=== PATIENT | female | born 1950 | race Caucasian/White ===

== ENCOUNTER 2016-10-18 11:20 | Observation (INO) | payer MEDICARE ==
[2016-10-18 12:01] LABS: Mean Cell Volume 84.5 fl (78-100); Mean Corpuscular Hemoglobin 28.3 pg (26-32); Mean Platelet Volume 9.3 fl (6-9.5); Platelet Count 492 K/mm3 (150-450); Red Blood Count 4.53 M/mm3 (4.1-5.4); White Blood Count 11.2 K/mm3 (4.0-10.5)
[2016-10-18 12:38] LABS: ALBUMIN 3.5 g/dL (3.4-5.0); ANION GAP 17.6 MEQ/L (5-15); BILIRUBIN,TOTAL 0.4 mg/dL (0.2-1.0); Carbon Dioxide 21.7 mEq/L (21-32); Total Protein 7.6 gm/dL (6.4-8.2)
[2016-10-18] MEDS ORDERED: Lasix 40 MG/4 ML IV ONE (13:16)
--- NOTE | 2016-10-18 14:03 | XRAY ---
Exam: Two-view chest from 10/18/2016. Comparison: Two-view chest from 02/09/2016. Indication: Dyspnea. Findings: Upright PA and lateral chest films were obtained. The heart size is normal. The minimal epicardial fat pad is seen at the left cardiophrenic angle. Mild tortuosity of the descending thoracic aorta is seen. The remainder of the zen and mediastinal structures appears unremarkable. There is a thin transverse linear strand of plate atelectasis or linear scarring at the lateral right lung base. No air space infiltrates, vascular congestion, pneumothorax, or pleural fluid is seen. The bones are demineralized. Mild lower mid dorsal kyphosis and diffuse thoracic spondylosis are seen. I again see evidence of prior left shoulder surgery. Impression: 1. No infiltrates to suggest focal pneumonia or other acute cardiopulmonary disease is seen. 2. Thin small transverse strand of scarring or subsegmental plate atelectasis at lateral right lung base.
[2016-10-18] MEDS: Zestril 5 MG PO SCH (15:12)
[2016-10-19 00:51] LABS: Collection Type CLEAN CATCH
[2016-10-19 00:52] LABS: ADD URINE CULTURE? NO (NO); COMPLETE URINE MICROSCOPIC? NO
[2016-10-19 01:06] VITALS: O2SAT 93
[2016-10-19 06:09] LABS: Mean Cell Volume 85.5 fl (78-100); Platelet Count 445 K/mm3 (150-450); Red Blood Count 4.27 M/mm3 (4.1-5.4); Red Cell Distribution Width 13.9 % (11.5-14.0); White Blood Count 9.3 K/mm3 (4.0-10.5)
[2016-10-19 06:23] LABS: Mean Corpuscular Hemoglobin 27.1 pg (26-32)
[2016-10-19 06:37] LABS: ANION GAP 14.5 MEQ/L (5-15); Carbon Dioxide 27.3 mEq/L (21-32)
[2016-10-19 07:48] VITALS: BP 121/57; PULSE 88
--- NOTE | 2016-10-19 09:28 | PCM.DCORD ---
- Discharge Discharge Date: 10/19/16 Disposition: Home, Self-Care Condition: Stable Prescriptions: Continue Lisinopril 5 mg [Zestril 5 MG] 5 mg PO DAILY Discontinued Baicalin/Catechin/Citrated Znc [[id number] Capsule] 1,000 mg PO BID Instructions: Dyspepsia Follow up with: ARMANI ALVAREZ [Primary Care Provider] - 1 Week
[2016-10-19] MEDS: Zestril 5 MG PO SCH (09:40)
[2016-10-19] MEDS ORDERED: Lasix 40 MG/4 ML IV SCH (10:00)
[2016-10-19] MEDS ORDERED: FLUZONE HIGH-DOSE 2016-17 SYR IM ONE (10:00)
--- NOTE | 2016-10-21 11:41 | SSS ---
DISCHARGE DIAGNOSES: 1) WEAKNESS. 2) ELEVATED PRO-BNP (PRO B-TYPE NATRIURETIC PEPTIDE) LEVEL. 3) HISTORY OF ARTHRITIS. HISTORY OF PRESENT ILLNESS: The patient is a 66 year-old white female who was seen in the office by Dr. Hightower. She complained of some generalized weakness. She went to the bathroom and came back to the room. Afterwards Dr. Hightower noted her to be significantly short of breath. She was therefore directly admitted to hospital for evaluation and management. The patient reports no recent infections other than she did have a diarrheal episode approximately a week ago. She reports she has been having occipital area headache. She does have some new medication which she was given from Dr. Ferguson, a local recording studio setup worker, Limbrel at 1,000 mg b.i.d. which the patient reports is new for her. She are unsure perhaps that is the cause of some of her problems. The patient did receive a dose of Lasix what was found to be elevated pro-BNP level after which the patient did diurese nicely afterwards but the patient reports that she did not really feel much better afterwards. PAST MEDICAL/SURGICAL HISTORY: HOME MEDICATIONS: The patient's other medications at home are lisinopril 5 mg a day. ALLERGIES: SULFA. PHYSICAL EXAMINATION: The patient is an obese white female in no obvious distress. VITAL SIGNS: Showed temperature 97.9F, pulse 87, respiratory rate 15, blood pressure 118/70. O2 saturation 93% on room air. HEENT: Normocephalic, atraumatic. Pupils equal round reactive to light. Extraocular movements intact. Oropharynx is pink and moist. NECK: Supple without lymphadenopathy, thyromegaly or JVD. CHEST: Clear to auscultation with good air movement bilaterally. HEART: Regular rate and rhythm without murmurs, rubs or gallops. ABDOMEN: Soft, nontender, nondistended without hepatosplenomegaly or masses. EXTREMITIES: Without clubbing, cyanosis or edema. NEUROLOGIC: The patient is alert and oriented x3. No focal deficits were noted. LAB DATA AND TESTS: Otherwise show hemoglobin 12.8, white blood cell count 11,200, PLT count 492,000. Her metabolic panel showed glucose nonfasting at 124, BUN 14, creatinine 1.09. Electrolytes were normal. Liver enzymes were normal. Pro-BNP level was indicated previously as 930. Influenza A, B and respiratory syncytial virus were negative. UA was normal. The patient did have an echocardiogram performed which results are currently pending. HOSPITAL COURSE: The patient after a stay overnight is comfortable on room air on no IV treatments nor any specific medications otherwise had been ordered. The patient was felt to be ready for discharge home at this time with instructions to follow with Dr. Hightower for follow up on her echocardiogram report. She was asked not to take her new rheumatologic medication as we are concerned that might have something to do with the way she has been feeling. She is to call us or return to the hospital if she has worsening in her condition in the interim.
--- NOTE | 2016-10-22 13:54 | ECHO ---
DATE OF PROCEDURE: 10/18/2016 CLINICAL INFORMATION: Dyspnea. The M-mode 2D, and Doppler echocardiogram including color flow Doppler shows normal contractility of the left ventricle. The ejection fraction is between 55 and 60%. The left ventricle is normal in size with a dimension of 5.2 cm. The septum is at the upper limits of normal with thickness of 1.1 cm. The left ventricular posterior wall is mildly hypertrophied with a thickness of 1.3 cm. The right ventricle is normal in size and function. The left atrium is normal in size with a dimension of 3.5 cm. The intra-atrial septum is intact. The right atrium is normal in size. The aortic valve opens well. It is not well visualized. There is mild mitral regurgitation present. There is mild tricuspid regurgitation. The right ventricular systolic pressure is normal at 25 mm of [place]. The pulmonic valve is not well visualized. The aortic root is normal with a dimension of 2.8 cm. There is no pericardial effusion present. The mitral valve E to A inflow velocity ratio is decreased at 0.6 consistent with impaired left ventricular relaxation. IMPRESSION: 1) NORMAL CONTRACTILITY OF THE LEFT VENTRICLE. 2) EVIDENCE OF IMPAIRED LEFT VENTRICULAR RELAXATION. 3) MILD ASYMMETRIC LEFT VENTRICULAR HYPERTROPHY. 4) MILD MITRAL REGURGITATION. 5) MILD TRICUSPID REGURGITATION. 6) NORMAL RIGHT VENTRICULAR SYSTOLIC PRESSURE.
== END 2016-10-19 11:20 | disposition home or self-care (01) ==
LOC: MED SURG 11:20
PROVIDERS: ADMIT Family Medicine; ATTEND Family Medicine
DX: R53.1 Weakness (principal); R79.89 Other specified abnormal findings of blood chemistry; M19.90 Unspecified osteoarthritis, unspecified site; Z23 Encounter for immunization; E78.5 Hyperlipidemia, unspecified
CPT/HCPCS: 36415; 71020; 80048; 80053; 81000; 83880; 85027; 87631; 90662; 93306; G0008; G0378; J1940

== ENCOUNTER 2016-11-06 23:03 | Inpatient (IN) | payer MEDICARE ==
[2016-11-06] MEDS ORDERED: BABY ASPIRIN 81 MG CHEW PO ONE (23:24)
[2016-11-06] MEDS ORDERED: VALIUM 10 MG/2 ML SYRINGE IV ONE (23:25)
--- NOTE | 2016-11-06 23:29 | ERPHSYRPT ---
- History of Present Illness Time Seen by Provider: 11/06/16 23:18 Source: patient, family (DAUGHTER) Exam Limitations: no limitations Patient Subjective Stated Complaint: pt states she has been getting increasingly short of breath tonight and arms are going numb Triage Nursing Assessment: pt alert and oriented, asnwers questions approp. short of breath while talking. skin warm and dry, respirations labored with lungs cta. pt denies chest pain. Physician History: FOR THE PAST 3 WEEKS PT HAS HAD INTERMITTENT SHORTNESS OF AIR AND NUMBNESS IN BOTH ARMS; DENIES CHEST PAIN, VOMITING, FEVER. PT STATES SHE HAD A V/Q SCAN YESTERDAY WITH A RESULT OF NO PE. Allergies/Adverse Reactions: Sulfa (Sulfonamide Antibiotics) Allergy (Verified 11/06/16 23:19) Home Medications: Lisinopril 5 mg [Zestril 5 MG] 5 mg PO DAILY 02/09/16 [History] Aspirin [Aspirin EC] 81 mg PO DAILY 11/06/16 [History] Hx Tetanus, Diphtheria Vaccination/Date Given: Yes Hx Influenza Vaccination/Date Given: Yes Hx Pneumococcal Vaccination/Date Given: Yes (Prevnar 13) Immunizations Up to Date: Yes - Review of Systems Constitutional: No Fever Respiratory: Dyspnea Cardiac: No Chest Pain Abdominal/Gastrointestinal: No Vomiting Neurological: Sensory Changes (NUMBNESS IN BOTH ARMS) All Other Systems: Reviewed and Negative - Past Medical History Pertinent Past Medical History: Yes Neurological History: Seizures, Stroke ENT History: No Pertinent History Cardiac History: Hypertension Respiratory History: No Pertinent History Endocrine Medical History: No Pertinent History Musculoskeletal History: Osteoarthritis GI Medical History: No Pertinent History History: No Pertinent History Psycho-Social History: No Pertinent History Female Reproductive Disorders: No Pertinent History Other Medical History: admitted recently with shortness of breath - Past Surgical History Past Surgical History: Yes Neuro Surgical History: No Pertinent History Cardiac: No Pertinent History Respiratory: No Pertinent History Gastrointestinal: No Pertinent History Genitourinary: No Pertinent History Musculoskeletal: Other Female Surgical History: Tubal Ligation Other Surgical History: left rotator cuff surgery, cyst r arm removed - Social History Smoking Status: Never smoker Exposure to second hand smoke: Yes Drug Use: none Patient Lives Alone: No - Female History Hx Last Menstrual Period: post - Nursing Vital Signs Nursing Vital Signs: Initial Vital Signs Temperature Source Oral Pulse Rate 112 Respiratory Rate 28 Blood Pressure [] 131/77 Pain Intensity 0 - Physical Exam General Appearance: alert, anxiety Eye Exam: PERRL/EOMI Ears, Nose, Throat Exam: hearing grossly normal, No pharyngeal erythema (DRY m.m.) Neck Exam: normal inspection Respiratory Exam: lungs clear Cardiovascular/Chest Exam: normal heart sounds, normal peripheral pulses Abdominal/Gastrointestinal Exam: soft, normal bowel sounds Extremity Exam: normal inspection, No pedal edema Peripheral Pulses Exam: dorsalis-pedis (R): 2+, dorsalis-pedis (L): 2+ Neurologic Exam: alert, cooperative, No normal mood/affect (VERY ANXIOUS) Skin Exam: warm, dry SpO2 Interpretation: normal SpO2: 96 Oxygen Delivery: Room Air - Course Nursing assessment & vital signs reviewed: Yes EKG Interpreted by Me: RATE (120), Sinus Tach, NORMAL AXIS, NORMAL INTERVALS - Radiology Exams Chest X-ray Interpretation: Interpreted by me, No Pneumonia Ordered Tests: Active Orders 24 hr Category Date Time Status Sheet Metal Worker Supervisor STAT Care 11/06/16 23:24 Active EKG-ER Only STAT Care 11/06/16 23:24 Active IV Insertion STAT Care 11/06/16 23:24 Active Oxygen-ED Only NASAL CANNULA 2 lpm Care 11/06/16 23:24 Active Pulse Oximetry (ED) STAT Care 11/06/16 23:24 Active CHEST 1 VIEW (PORTABLE) Stat Exams 11/06/16 23:24 Taken ABG [ARTERIAL BLOOD GASES] Stat Lab 11/06/16 23:39 Completed ABG [ARTERIAL BLOOD GASES] Stat Lab 11/07/16 04:00 Completed AMYLASE Stat Lab 11/06/16 23:28 Completed BLOOD CULTURE Stat Lab 11/07/16 00:00 Received BMP Stat Lab 11/07/16 01:53 Completed CBC W DIFF Stat Lab 11/06/16 23:28 Completed CMP Stat Lab 11/06/16 23:28 Completed CULTURE,URINE Stat Lab 11/07/16 01:40 Received LIPASE Stat Lab 11/06/16 23:28 Completed Lactic Acid Stat Lab 11/07/16 04:00 Completed Lactic Acid Urgent Lab 11/06/16 23:39 Completed Lactic Acid Urgent Lab 11/07/16 01:50 Completed MAGNESIUM Stat Lab 11/06/16 23:28 Completed MAGNESIUM Stat Lab 11/07/16 01:53 Completed TROPONIN Stat Lab 11/06/16 23:28 Completed TROPONIN Stat Lab 11/07/16 01:53 Completed UA W/ MICROSCOPIC Stat Lab 11/07/16 01:37 Completed Medication Summary Generic Name Dose Route Start Last Admin Trade Name Darleen PRN Reason Stop Dose Admin Sodium Chloride 1,000 mls @ 100 mls/hr 11/06/16 23:30 11/06/16 23:35 Sodium Chloride 0.9% 1000 Ml IV 12/06/16 23:29 100 mls/hr .Q10H GRETCHEN Administration Discontinued Medications Generic Name Dose Route Start Last Admin Trade Name Darleen PRN Reason Stop Dose Admin Aspirin 324 mg 11/06/16 23:24 11/06/16 23:35 Baby Aspirin 81 Mg Chew PO 11/06/16 23:25 324 mg STAT ONE Administration Aspirin Confirm 11/06/16 23:32 Baby Aspirin 81 Mg Chew Administered 11/06/16 23:33 Dose 324 mg .ROUTE .STK-MED ONE Diazepam 5 mg 11/06/16 23:25 11/06/16 23:34 Valium 10 Mg/2 Ml Syringe IV 11/06/16 23:26 5 mg STAT ONE Administration Diazepam Confirm 11/06/16 23:32 Valium 10 Mg/2 Ml Syringe Administered 11/06/16 23:33 Dose 10 mg .ROUTE .STK-MED ONE Sodium Chloride Confirm 11/06/16 23:33 Sodium Chloride 0.9% 1000 Ml Administered 11/06/16 23:34 Dose 1,000 mls @ ud .ROUTE .STK-MED ONE Magnesium Sulfate/Dextrose 100 mls @ 200 mls/hr 11/07/16 00:15 11/07/16 00:21 Magnesium 1 Gm / 100 Ml D5w IV 11/07/16 00:44 200 mls/hr STAT ONE Administration Magnesium Sulfate/Dextrose Confirm 11/07/16 00:19 Magnesium 1 Gm / 100 Ml D5w Administered 11/07/16 00:20 Dose 100 mls @ ud IV .STK-MED ONE Ceftriaxone Sodium/Dextrose 50 mls @ 100 mls/hr 11/07/16 02:20 11/07/16 02:39 Rocephin 1 Gm-D5w 50 Ml Bag IV 11/07/16 02:49 100 mls/hr STAT ONE Administration Sodium Chloride 1,000 mls @ 999 mls/hr 11/07/16 02:20 11/07/16 03:17 Sodium Chloride 0.9% 1000 Ml IV 11/07/16 03:20 999 mls/hr .Q1H1M STA Administration Sodium Chloride 1,000 mls @ 999 mls/hr 11/07/16 02:28 11/07/16 04:30 Sodium Chloride 0.9% 1000 Ml IV 11/07/16 03:28 999 mls/hr .Q1H1M STA Administration Ceftriaxone Sodium/Dextrose Confirm 11/07/16 02:38 Rocephin 1 Gm-D5w 50 Ml Bag Administered 11/07/16 02:39 Dose 50 mls @ ud IV .STK-MED ONE Sodium Chloride Confirm 11/07/16 03:17 Sodium Chloride 0.9% 1000 Ml Administered 11/07/16 03:18 Dose 1,000 mls @ ud .ROUTE .STK-MED ONE Sodium Chloride Confirm 11/07/16 04:30 Sodium Chloride 0.9% 1000 Ml Administered 11/07/16 04:31 Dose 1,000 mls @ ud .ROUTE .STK-MED ONE Lab/Rad Data: Laboratory Result Diagrams 11/06/16 23:28 11/07/16 01:53 Laboratory Results 11/07/16 11/07/16 11/07/16 Range/Units 04:00 01:53 01:50 WBC (4.0-10.5) K/mm3 RBC (4.1-5.4) M/mm3 Hgb (12.0-16.0) gm/dl Hct (35-47) % MCV (78-100) fl MCH (26-32) pg MCHC (32-36) g/dl RDW (11.5-14.0) % Plt Count (150-450) K/mm3 MPV (6-9.5) fl Gran % (36.0-66.0) % Lymphocytes % (24.0-44.0) % Monocytes % (0.0-12.0) % Eosinophils % (0.00-5.0) % Basophils % (0.0-0.4) % Basophils # (0-0.4) Puncture Site RIGHT BRACHIAL pCO2 32 L (35-45) mmHg pO2 66 L (75-100) mmHg Base Excess -3.0 L (-2.0-2.0) O2 Saturation 93.0 L (94-100) g/dF ABG pH 7.42 (7.35-7.45) ABG HCO3 20.8 L (22-28) ABG O2 Sat (Measured) 95.7 (95-100) % Jay Test NOT APPLICABLE A-a Gradient 44 a/A Ratio 0.60 Hemoglobin 11.0 Carboxyhemoglobin 1.8 (0.0-6.9) % THgb Methemoglobin 1.0 L (1.4-1.5) % Temperature 37.0 C POC O2 Flow Rate 21 % Sodium 141 (136-145) mEq/L Potassium 4.3 4.7 (3.5-5.1) mEq/L Chloride 106 (98-107) mEq/L Carbon Dioxide 24.8 (21-32) mEq/L Anion Gap 15.0 (5-15) MEQ/L BUN 16 (9-20) mg/dL Creatinine 1.19 (0.55-1.30) mg/dl Estimated GFR 48 ML/MIN Glucose 167 H (70-110) MG/DL Lactic Acid 2.1 H 2.7 H (0.4-2.0) Calcium 9.4 (8.5-10.1) mg/dL Magnesium 2.1 (1.8-2.4) mg/dL Total Bilirubin (0.2-1.0) mg/dL AST (15-37) U/L ALT (12-78) U/L Alkaline Phosphatase (46-116) U/L Troponin I < 0.017 (0.000-0.056) ng/ml Serum Total Protein (6.4-8.2) gm/dL Albumin (3.4-5.0) g/dL Amylase (25-115) U/L Lipase (73-393) U/L Ur Collection Type Urine Color (YELLOW) Urine Appearance (CLEAR) Urine pH (5-6) Ur Specific [place] (1.005-1.025) Urine Protein (Negative) Urine Glucose (UA) (NEGATIVE) mg/dL Urine Ketones (NEGATIVE) Urine Nitrite (NEGATIVE) Urine Bilirubin (NEGATIVE) Urine Urobilinogen (0-1) mg/dL Urine WBC (Auto) (NEGATIVE) Urine RBC (Auto) (0-5) Mariusz/ul Urine Microscopic RBC (0-2) /HPF Urine Microscopic WBC (0-5) /HPF Ur Epithelial Cells (FEW) /HPF Urine Bacteria (NEGATIVE) /HPF Hyaline Casts (0-2) /LPF Urine Mucus (NEGATIVE) /HPF Specimen Received 11/07/16 11/06/16 11/06/16 Range/Units 01:37 23:39 23:39 WBC (4.0-10.5) K/mm3 RBC (4.1-5.4) M/mm3 Hgb (12.0-16.0) gm/dl Hct (35-47) % MCV (78-100) fl MCH (26-32) pg MCHC (32-36) g/dl RDW (11.5-14.0) % Plt Count (150-450) K/mm3 MPV (6-9.5) fl Gran % (36.0-66.0) % Lymphocytes % (24.0-44.0) % Monocytes % (0.0-12.0) % Eosinophils % (0.00-5.0) % Basophils % (0.0-0.4) % Basophils # (0-0.4) Puncture Site RIGHT BRACHIAL pCO2 34 L (35-45) mmHg pO2 62 L (75-100) mmHg Base Excess -1.8 (-2.0-2.0) O2 Saturation 92.8 L (94-100) g/dF ABG pH 7.42 (7.35-7.45) ABG HCO3 22.1 (22-28) ABG O2 Sat (Measured) 94.9 L (95-100) % Jay Test NOT APPLICABLE A-a Gradient 45 a/A Ratio 0.58 Hemoglobin 12.0 Carboxyhemoglobin 1.7 (0.0-6.9) % THgb Methemoglobin 0.5 L (1.4-1.5) % Temperature 37.0 C POC O2 Flow Rate 21 % Sodium (136-145) mEq/L Potassium 4.0 (3.5-5.1) mEq/L Chloride (98-107) mEq/L Carbon Dioxide (21-32) mEq/L Anion Gap (5-15) MEQ/L BUN (9-20) mg/dL Creatinine (0.55-1.30) mg/dl Estimated GFR ML/MIN Glucose (70-110) MG/DL Lactic Acid 2.7 H (0.4-2.0) Calcium (8.5-10.1) mg/dL Magnesium (1.8-2.4) mg/dL Total Bilirubin (0.2-1.0) mg/dL AST (15-37) U/L ALT (12-78) U/L Alkaline Phosphatase (46-116) U/L Troponin I (0.000-0.056) ng/ml Serum Total Protein (6.4-8.2) gm/dL Albumin (3.4-5.0) g/dL Amylase (25-115) U/L Lipase (73-393) U/L Ur Collection Type CLEAN CATCH Urine Color YELLOW (YELLOW) Urine Appearance CLEAR (CLEAR) Urine pH 5.5 (5-6) Ur Specific [place] 1.025 (1.005-1.025) Urine Protein TRACE (Negative) Urine Glucose (UA) NEGATIVE (NEGATIVE) mg/dL Urine Ketones NEGATIVE (NEGATIVE) Urine Nitrite NEGATIVE (NEGATIVE) Urine Bilirubin NEGATIVE (NEGATIVE) Urine Urobilinogen 0.2 (0-1) mg/dL Urine WBC (Auto) TRACE (NEGATIVE) Urine RBC (Auto) NEGATIVE (0-5) Mariusz/ul Urine Microscopic RBC 2-5 (0-2) /HPF Urine Microscopic WBC 5-10 (0-5) /HPF Ur Epithelial Cells MODERATE (FEW) /HPF Urine Bacteria MODERATE (NEGATIVE) /HPF Hyaline Casts 0-2 (0-2) /LPF Urine Mucus MODERATE (NEGATIVE) /HPF Specimen Received 11/07/16 0140 11/06/16 11/06/16 11/06/16 Range/Units 23:28 23:28 23:28 WBC 12.9 H (4.0-10.5) K/mm3 RBC 4.54 (4.1-5.4) M/mm3 Hgb 12.6 (12.0-16.0) gm/dl Hct 39.0 (35-47) % MCV 85.9 (78-100) fl MCH 27.8 (26-32) pg MCHC 32.3 (32-36) g/dl RDW 13.9 (11.5-14.0) % Plt Count 302 (150-450) K/mm3 MPV 8.9 (6-9.5) fl Gran % 87.8 H (36.0-66.0) % Lymphocytes % 5.8 L (24.0-44.0) % Monocytes % 4.2 (0.0-12.0) % Eosinophils % 2.1 (0.00-5.0) % Basophils % 0.1 (0.0-0.4) % Basophils # 0.01 (0-0.4) Puncture Site pCO2 (35-45) mmHg pO2 (75-100) mmHg Base Excess (-2.0-2.0) O2 Saturation (94-100) g/dF ABG pH (7.35-7.45) ABG HCO3 (22-28) ABG O2 Sat (Measured) (95-100) % Jay Test A-a Gradient a/A Ratio Hemoglobin Carboxyhemoglobin (0.0-6.9) % THgb Methemoglobin (1.4-1.5) % Temperature C POC O2 Flow Rate % Sodium 139 (136-145) mEq/L Potassium 3.9 (3.5-5.1) mEq/L Chloride 105 (98-107) mEq/L Carbon Dioxide 19.6 L (21-32) mEq/L Anion Gap 18.7 H (5-15) MEQ/L BUN 18 (9-20) mg/dL Creatinine 1.25 (0.55-1.30) mg/dl Estimated GFR 45 ML/MIN Glucose 175 H (70-110) MG/DL Lactic Acid (0.4-2.0) Calcium 9.6 (8.5-10.1) mg/dL Magnesium 1.6 L (1.8-2.4) mg/dL Total Bilirubin 0.4 (0.2-1.0) mg/dL AST 43 H (15-37) U/L ALT 35 (12-78) U/L Alkaline Phosphatase 69 (46-116) U/L Troponin I < 0.017 (0.000-0.056) ng/ml Serum Total Protein 7.5 (6.4-8.2) gm/dL Albumin 3.7 (3.4-5.0) g/dL Amylase 45 (25-115) U/L Lipase 104 (73-393) U/L Ur Collection Type Urine Color (YELLOW) Urine Appearance (CLEAR) Urine pH (5-6) Ur Specific [place] (1.005-1.025) Urine Protein (Negative) Urine Glucose (UA) (NEGATIVE) mg/dL Urine Ketones (NEGATIVE) Urine Nitrite (NEGATIVE) Urine Bilirubin (NEGATIVE) Urine Urobilinogen (0-1) mg/dL Urine WBC (Auto) (NEGATIVE) Urine RBC (Auto) (0-5) Mariusz/ul Urine Microscopic RBC (0-2) /HPF Urine Microscopic WBC (0-5) /HPF Ur Epithelial Cells (FEW) /HPF Urine Bacteria (NEGATIVE) /HPF Hyaline Casts (0-2) /LPF Urine Mucus (NEGATIVE) /HPF Specimen Received - Progress Discussed with Dr.: Laguna (OBS ~ [id number]) - Departure Time of Disposition: 04:40 Departure Disposition: Observation Clinical Impression: UTI, MILD DEHYDRATION, HYPOMAGNESEMIA, DYSPNEA, DYSESTHESIA OF ARMS, HTN, ARTHRITIS, ANXIETY Condition: Stable Critical Care Time: No Referrals: ARMANI ALVAREZ [Primary Care Provider] -
[2016-11-06] MEDS ORDERED: Sodium Chloride 0.9% 1000 ML 1,000 ML IV SCH (23:30)
[2016-11-06] MEDS ORDERED: VALIUM 10 MG/2 ML SYRINGE ONE (23:32)
[2016-11-06] MEDS ORDERED: BABY ASPIRIN 81 MG CHEW ONE (23:32)
[2016-11-06] MEDS ORDERED: Sodium Chloride 0.9% 1000 ML 1,000 ML ONE (23:33)
[2016-11-06 23:34] LABS: BASOPHIL % 0.1 % (0.0-0.4); Eosinophil % 2.1 % (0.00-5.0); Granulocytes % 87.8 % (36.0-66.0); Lymphocytes % 5.8 % (24.0-44.0); Mean Cell Volume 85.9 fl (78-100); Mean Corpuscular Hemoglobin 27.8 pg (26-32); Mean Platelet Volume 8.9 fl (6-9.5); Monocytes % 4.2 % (0.0-12.0); Platelet Count 302 K/mm3 (150-450); Red Blood Count 4.54 M/mm3 (4.1-5.4); Red Cell Distribution Width 13.9 % (11.5-14.0); White Blood Count 12.9 K/mm3 (4.0-10.5)
[2016-11-06 23:47] LABS: A-aADO2 45; ARTERIAL BLD GAS O2 SATURATION 94.9 % (95-100); ARTERIAL BLOOD GAS BASE EXCESS -1.8 (-2.0-2.0); ARTERIAL BLOOD GAS FIO2 21 %; ARTERIAL BLOOD GAS PO2 62 mmHg (75-100); ARTERIAL BLOOD GAS pH 7.42 (7.35-7.45)
[2016-11-06 23:54] LABS: ALBUMIN 3.7 g/dL (3.4-5.0); ANION GAP 18.7 MEQ/L (5-15); BILIRUBIN,TOTAL 0.4 mg/dL (0.2-1.0); Carbon Dioxide 19.6 mEq/L (21-32); MAGNESIUM 1.6 mg/dL (1.8-2.4); Potassium 3.9 mEq/L (3.5-5.1); Total Protein 7.5 gm/dL (6.4-8.2)
[2016-11-07] MEDS ORDERED: Magnesium 1 Gm / 100 Ml D5W*** 100 ML IV ONE ×2 (00:15→00:19)
[2016-11-07 01:59] LABS: Bacteria MODERATE /HPF (NEGATIVE); COMPLETE URINE MICROSCOPIC? YES; Collection Type CLEAN CATCH; Epithelial Cells MODERATE /HPF (FEW); Hyaline Casts 0-2 /LPF (0-2); Mucus MODERATE /HPF (NEGATIVE); Ph 5.5 (5-6)
[2016-11-07 02:18] LABS: BLOOD UREA NITROGEN 16 mg/dL (9-20); CHLORIDE 106 mEq/L (98-107); Carbon Dioxide 24.8 mEq/L (21-32); Glucose 167 MG/DL (70-110); MAGNESIUM 2.1 mg/dL (1.8-2.4); Potassium 4.7 mEq/L (3.5-5.1); SODIUM 141 mEq/L (136-145); TROPONIN < 0.017 ng/ml (0.000-0.056)
[2016-11-07] MEDS ORDERED: ROCEPHIN 1 Gm-D5w 50 ml Bag** 50 ML IV ONE ×2 (02:20→02:38)
[2016-11-07] MEDS ORDERED: Sodium Chloride 0.9% 1000 ML 1,000 ML IV STA ×2 (02:20→02:28)
[2016-11-07] MEDS ORDERED: Sodium Chloride 0.9% 1000 ML 1,000 ML ONE (03:17)
[2016-11-07 04:06] LABS: A-aADO2 44; ARTERIAL BLD GAS O2 SATURATION 95.7 % (95-100); ARTERIAL BLOOD GAS FIO2 21 %; ARTERIAL BLOOD GAS PO2 66 mmHg (75-100); ARTERIAL BLOOD GAS pH 7.42 (7.35-7.45); Lactic Acid 2.1 (0.4-2.0)
[2016-11-07] MEDS ORDERED: Sodium Chloride 0.9% 1000 ML 2,000 ML ONE (04:30)
[2016-11-07] MEDS ORDERED: Phenergan 25 MG INJ IV PRN (05:03)
[2016-11-07] MEDS: Sodium Chloride 0.9% 1000 ML 1,000 ML IV SCH ×2 (06:21→16:04)
[2016-11-07 07:36] LABS: Mean Cell Volume 86.3 fl (78-100); Mean Platelet Volume 8.7 fl (6-9.5); Platelet Count 295 K/mm3 (150-450); Red Cell Distribution Width 13.9 % (11.5-14.0); White Blood Count 11.8 K/mm3 (4.0-10.5)
[2016-11-07] MEDS: TYLENOL 325 MG PO PRN ×2 (08:08→16:04)
[2016-11-07 08:09] LABS: ALBUMIN 2.8 g/dL (3.4-5.0); ALKALINE PHOSPHATASE 57 U/L (46-116); ANION GAP 15.7 MEQ/L (5-15); BILIRUBIN,TOTAL 0.3 mg/dL (0.2-1.0); BLOOD UREA NITROGEN 13 mg/dL (9-20); Glucose 143 MG/DL (70-110); MAGNESIUM 1.8 mg/dL (1.8-2.4); Potassium 4.4 mEq/L (3.5-5.1); SGOT/AST 38 U/L (15-37); SGPT/ALT 35 U/L (12-78); SODIUM 140 mEq/L (136-145); Total Protein 6.1 gm/dL (6.4-8.2)
--- NOTE | 2016-11-07 08:45 | XRAY ---
Indication: Short of breath and chest pain. Comparison: October 18, 2016. Portable apical lordotic chest unchanged with stable minimal left base infiltrate/atelectasis and right hemidiaphragm elevation. Heart is not enlarged. No new cardiopulmonary abnormalities.
--- NOTE | 2016-11-07 08:57 | PCM.HP ---
History of Present Illness - Chief Complaint Chief Complaint: UTI, SOB, Mild dehydration History of Present Illness: is a 66 year old female pt of mine from [facility] who is undergoing an extensive workup for dyspnea who came in yesterday complaining of worsening dyspnea. She also c/o bilateral arm numbness that is intermittent. She was found to have UTI in the ER. Preliminary read of CXR was nothing acute, but radiology read is pending. - Review of Systems Constitutional: Fever (101 this morning), Fatigue, Night Sweats Respiratory: Cough, Short Of Breath Cardiac: Chest Pain (yesterday, R sided), Edema (bilat LE) Abdominal/Gastrointestinal: Nausea Neurological: Sensory Changes Psychological: Anxiety All Other Systems: Reviewed and Negative Medications & Allergies Home Medications: Home Medication List Lisinopril 5 mg [Zestril 5 MG] 5 mg PO DAILY 02/09/16 [History Confirmed 11/06/16] Aspirin [Aspirin EC] 81 mg PO DAILY 11/06/16 [History Confirmed 11/06/16] Allergies/Adverse Reactions: Allergies Allergy/AdvReac Type Severity Reaction Status Date / Time Sulfa (Sulfonamide Allergy Verified 11/06/16 23:19 Antibiotics) - Past Medical History Past Medical History: Yes Neurological History: Seizures, Stroke ENT History: No Pertinent History Cardiac History: Hypertension Respiratory History: No Pertinent History Endocrine Medical History: No Pertinent History Musculoskelatal History: Osteoarthritis GI Medical History: No Pertinent History History: No Pertinent History Pyscho-Social History: No Pertinent History Reproductive Disorders: No Pertinent History Comment: admitted recently with shortness of breath - Female History Hx Last Menstrual Period: post - Past Surgical History Past Surgical History: Yes Neuro Surgical History: No Pertinent History Cardiac History: No Pertinent History Respiratory Surgery: No Pertinent History GI Surgical History: No Pertinent History Genitourinary Surgical Hx: No Pertinent History Musculskeletal Surgical Hx: Other Female Surgical History: Tubal Ligation Other Surgical History: left rotator cuff surgery, cyst r arm removed - Social History Smoking Status: Never smoker Exposure to second hand smoke: Yes Alcohol: Occasionally Drug Use: none - Physical Exam Vital Signs: Vital Signs - 24 hr Temp Pulse Resp BP Pulse Ox 11/07/16 08:08 101.0 F 11/07/16 07:25 101.0 F 107 H 21 119/59 92 L 11/07/16 07:23 93 L 11/07/16 06:04 95 11/07/16 06:00 96 11/07/16 04:56 99.6 F 115 H 18 141/72 96 11/07/16 04:41 96 11/07/16 01:50 112 H 28 H 131/77 98 11/07/16 01:05 103 H 31 H 120/63 100 11/06/16 23:28 95 11/06/16 23:09 134 H 32 H 96 Oxygen-Last 24 hours O2 Percentage 2 Liters = 28% General Appearance: no apparent distress, obese Neurologic Exam: alert, oriented x 3, cooperative Eye Exam: eyes nml inspection Neck Exam: normal inspection, non-tender, No lymphadenopathy Respiratory Exam: normal breath sounds, lungs clear, No crackles/rales, No rhonchi, No wheezing Cardiovascular Exam: regular rate/rhythm, normal heart sounds, No murmur Gastrointestinal/Abdomen Exam: soft, normal bowel sounds, No tenderness, No distention, No mass, No guarding, No rebound Back Exam: normal inspection Extremity Exam: pedal edema (trace LE edema) Skin Exam: normal color, warm, dry Results - Labs Lab/Micro Results: Lab Results-Last 24 Hours 11/07/16 11/07/16 Range/Units 07:17 07:17 Sodium 140 (136-145) mEq/L Potassium 4.4 (3.5-5.1) mEq/L Carbon Dioxide 20.0 L (21-32) mEq/L Anion Gap 15.7 H (5-15) MEQ/L BUN 13 (9-20) mg/dL Creatinine 1.00 (0.55-1.30) mg/dl Estimated GFR 59 ML/MIN Glucose 143 H (70-110) MG/DL Calcium 8.0 L (8.5-10.1) mg/dL Magnesium 1.8 (1.8-2.4) mg/dL Total Bilirubin 0.3 (0.2-1.0) mg/dL AST 38 H (15-37) U/L ALT 35 (12-78) U/L Alkaline Phosphatase 57 (46-116) U/L Troponin I < 0.017 (0.000-0.056) ng/ml Serum Total Protein 6.1 L (6.4-8.2) gm/dL Albumin 2.8 L (3.4-5.0) g/dL Assessment/Plan (1) Dyspnea Current Visit: Yes Status: Acute Qualifiers: Dyspnea type: dyspnea on exertion Qualified Code(s): R06.09 - Other forms of dyspnea Assessment & Plan: with minimal exertion, even on rolling over in bed. She has seen cardiology, had CTA of the chest, multiple CXR, PFTs (results pending). Will consult pulmonology. Final read of CXR by radiology with LLL atelectasis vs infiltrate. Pt is on IV rocephin for UTI. Code(s): R06.00 - DYSPNEA, UNSPECIFIED (2) UTI (urinary tract infection) Current Visit: Yes Status: Acute Qualifiers: Urinary tract infection type: acute cystitis Hematuria presence: without hematuria Qualified Code(s): N30.00 - Acute cystitis without hematuria Assessment & Plan: On IV rocephin, day #2 Code(s): N39.0 - URINARY TRACT INFECTION, SITE NOT SPECIFIED (3) Hypomagnesemia Current Visit: Yes Status: Acute Assessment & Plan: mag repleted - nl this morning. Code(s): E83.42 - HYPOMAGNESEMIA (4) Acute kidney injury Current Visit: No Status: Acute Assessment & Plan: much improved after IV fluids this morning. Code(s): N17.9 - ACUTE KIDNEY FAILURE, UNSPECIFIED (5) Dehydration Current Visit: No Status: Acute Assessment & Plan: improved. on IV fluids. Code(s): E86.0 - DEHYDRATION (6) Hypertension Current Visit: No Status: Chronic Qualifiers: Hypertension type: essential hypertension Qualified Code(s): I10 - Essential (primary) hypertension Assessment & Plan: will observe, continue lisinopril. Code(s): I10 - ESSENTIAL (PRIMARY) HYPERTENSION (7) Osteoarthritis Current Visit: No Status: Chronic Qualifiers: Osteoarthritis location: unspecified site Assessment & Plan: takes limbrel, an OTC arthritis med. Code(s): M19.90 - UNSPECIFIED OSTEOARTHRITIS, UNSPECIFIED SITE
[2016-11-07] MEDS: MAG-OX 400 PO SCH (08:59)
[2016-11-07 09:02] LABS: Mean Corpuscular Hemoglobin 27.3 pg (26-32)
[2016-11-07] MEDS: Zestril 5 MG PO SCH (09:58)
[2016-11-07] MEDS: ECOTRIN 81 MG PO SCH (09:58)
[2016-11-07] MEDS ORDERED: MAALOX ES 30 ML UNIT DOSE PO PRN (16:24)
[2016-11-07] MEDS: Pepcid 20 MG PO SCH (21:13)
[2016-11-07] MEDS: ROCEPHIN 1 Gm-D5w 50 ml Bag** 50 ML IV SCH (21:14)
[2016-11-08 01:14] LABS: A-aADO2 47; ALLEN TEST OK? YES; ARTERIAL BLOOD GAS FIO2 21 %; ARTERIAL BLOOD GAS PO2 64 mmHg (75-100); ARTERIAL BLOOD GAS pH 7.43 (7.35-7.45)
[2016-11-08] MEDS: Sodium Chloride 0.9% 1000 ML 1,000 ML IV SCH ×3 (02:56→20:19)
[2016-11-08 05:34] LABS: BASOPHIL % 0.1 % (0.0-0.4); Eosinophil % 5.4 % (0.00-5.0); Granulocytes % 63.7 % (36.0-66.0); Lymphocytes % 21.3 % (24.0-44.0); Mean Cell Volume 87.6 fl (78-100); Mean Platelet Volume 8.5 fl (6-9.5); Monocytes % 9.5 % (0.0-12.0); Platelet Count 255 K/mm3 (150-450); Red Cell Distribution Width 14.1 % (11.5-14.0); White Blood Count 6.7 K/mm3 (4.0-10.5)
[2016-11-08 05:36] LABS: Mean Corpuscular Hemoglobin 27.2 pg (26-32)
[2016-11-08 05:55] LABS: ANION GAP 14.4 MEQ/L (5-15); Carbon Dioxide 23.2 mEq/L (21-32)
--- NOTE | 2016-11-08 09:04 | PCM.NOTE ---
Date and Time: 11/08/16900 Subjective Assessment: She has much more cough since yesterday, hurting abd muscles because of her cough. SOB is better since admission. - Review of Systems Constitutional: No Fever Respiratory: Cough Objective Exam General Appearance: no apparent distress, obese Neurologic Exam: alert, oriented x 3, cooperative Skin Exam: normal color, warm, dry Respiratory Exam: diminished breath sounds, No crackles/rales, No rhonchi, No wheezing Cardiovascular Exam: regular rate/rhythm, normal heart sounds, No murmur Extremity Exam: No pedal edema, No swelling OBJECTIVE DATA Vital Signs: Vital Signs - 24 hr Temp Pulse Resp BP Pulse Ox 11/08/16 07:36 98.3 F 85 18 139/65 90 L 11/08/16 06:31 92 L 11/08/16 03:34 99.1 F 87 14 112/54 92 L 11/07/16 23:48 98.9 F 85 14 135/65 95 11/07/16 19:51 98.5 F 86 14 128/57 95 11/07/16 15:57 99.0 F 88 18 137/64 95 11/07/16 11:22 98.9 F 92 H 19 131/57 94 L Pain Assessment - Last Documented Pain Intensity 0 Pain Scale Used 0-10 Pain Scale Intake and Output: Intake & Output 11/05/16 11/06/16 11/07/16 11/08/16 11:59 11:59 11:59 11:59 Intake Total 3042 540 Output Total 450 Balance 2592 540 Weight 114.396 kg 114.895 kg Lab Results: Lab Results-Last 24 Hours 11/07/16 11/07/16 11/07/16 Range/Units 07:00 07:17 07:17 WBC 11.8 H (4.0-10.5) K/mm3 RBC 3.80 L (4.1-5.4) M/mm3 Hgb 10.4 L (12.0-16.0) gm/dl Hct 32.8 L (35-47) % MCV 86.3 (78-100) fl MCH 27.3 (26-32) pg MCHC 31.7 L (32-36) g/dl RDW 13.9 (11.5-14.0) % Plt Count 295 (150-450) K/mm3 MPV 8.7 (6-9.5) fl Gran % (36.0-66.0) % Lymphocytes % (24.0-44.0) % Monocytes % (0.0-12.0) % Eosinophils % (0.00-5.0) % Basophils % (0.0-0.4) % Basophils # (0-0.4) Puncture Site RIGHT RADIAL pCO2 31 L (35-45) mmHg pO2 64 L (75-100) mmHg Base Excess -3.0 L (-2.0-2.0) O2 Saturation 93.5 L (94-100) g/dF ABG pH 7.43 (7.35-7.45) ABG HCO3 20.6 L (22-28) ABG O2 Sat (Measured) 96.0 (95-100) % Jay Test YES A-a Gradient 47 a/A Ratio 0.58 Hemoglobin 11.0 Carboxyhemoglobin 2.0 (0.0-6.9) % THgb Methemoglobin 0.6 L (1.4-1.5) % Potassium 4.4 (3.5-5.1) Temperature 37.0 C POC O2 Flow Rate 21 % Sodium (136-145) mEq/L Chloride (98-107) mEq/L Carbon Dioxide (21-32) mEq/L Anion Gap (5-15) MEQ/L BUN (9-20) mg/dL Creatinine (0.55-1.30) mg/dl Estimated GFR ML/MIN Glucose (70-110) MG/DL Lactic Acid 1.9 (0.4-2.0) Calcium (8.5-10.1) mg/dL Magnesium (1.8-2.4) mg/dL 11/08/16 11/08/16 Range/Units 05:31 05:31 WBC 6.7 (4.0-10.5) K/mm3 RBC 3.70 L (4.1-5.4) M/mm3 Hgb 10.1 L (12.0-16.0) gm/dl Hct 32.4 L (35-47) % MCV 87.6 (78-100) fl MCH 27.2 (26-32) pg MCHC 31.2 L (32-36) g/dl RDW 14.1 H (11.5-14.0) % Plt Count 255 (150-450) K/mm3 MPV 8.5 (6-9.5) fl Gran % 63.7 (36.0-66.0) % Lymphocytes % 21.3 L (24.0-44.0) % Monocytes % 9.5 (0.0-12.0) % Eosinophils % 5.4 H (0.00-5.0) % Basophils % 0.1 (0.0-0.4) % Basophils # 0.01 (0-0.4) Puncture Site pCO2 (35-45) mmHg pO2 (75-100) mmHg Base Excess (-2.0-2.0) O2 Saturation (94-100) g/dF ABG pH (7.35-7.45) ABG HCO3 (22-28) ABG O2 Sat (Measured) (95-100) % Jay Test A-a Gradient a/A Ratio Hemoglobin Carboxyhemoglobin (0.0-6.9) % THgb Methemoglobin (1.4-1.5) % Potassium 4.0 (3.5-5.1) Temperature C POC O2 Flow Rate % Sodium 144 (136-145) mEq/L Chloride 110 H (98-107) mEq/L Carbon Dioxide 23.2 (21-32) mEq/L Anion Gap 14.4 (5-15) MEQ/L BUN 9 (9-20) mg/dL Creatinine 1.01 (0.55-1.30) mg/dl Estimated GFR 58 ML/MIN Glucose 121 H (70-110) MG/DL Lactic Acid (0.4-2.0) Calcium 8.1 L (8.5-10.1) mg/dL Magnesium 2.0 (1.8-2.4) mg/dL Assessment/Plan (1) Dyspnea Current Visit: Yes Status: Acute Qualifiers: Dyspnea type: dyspnea on exertion Qualified Code(s): R06.09 - Other forms of dyspnea Assessment & Plan: somewhat improved. Has had extensive cardiac workup. REsults of PFT pending. Pulmonology consulted, thank you. Added IV steroid today. Code(s): R06.00 - DYSPNEA, UNSPECIFIED (2) UTI (urinary tract infection) Current Visit: Yes Status: Acute Qualifiers: Urinary tract infection type: acute cystitis Hematuria presence: without hematuria Qualified Code(s): N30.00 - Acute cystitis without hematuria Assessment & Plan: ON IV rocephin; UCx pending. Code(s): N39.0 - URINARY TRACT INFECTION, SITE NOT SPECIFIED (3) Hypomagnesemia Current Visit: Yes Status: Acute Assessment & Plan: recheck in the morning. Code(s): E83.42 - HYPOMAGNESEMIA (4) Acute kidney injury Current Visit: No Status: Acute Assessment & Plan: much better since admission. Code(s): N17.9 - ACUTE KIDNEY FAILURE, UNSPECIFIED (5) Dehydration Current Visit: No Status: Resolved Code(s): E86.0 - DEHYDRATION (6) Hypertension Current Visit: No Status: Chronic Qualifiers: Hypertension type: essential hypertension Qualified Code(s): I10 - Essential (primary) hypertension Assessment & Plan: stable on current meds. Code(s): I10 - ESSENTIAL (PRIMARY) HYPERTENSION (7) Osteoarthritis Current Visit: No Status: Chronic Qualifiers: Osteoarthritis location: unspecified site Code(s): M19.90 - UNSPECIFIED OSTEOARTHRITIS, UNSPECIFIED SITE (8) Cough Current Visit: Yes Status: Acute Assessment & Plan: added cough med and IV steroid. Pt without smoking hx. Code(s): R05 - COUGH
[2016-11-08] MEDS: MAG-OX 400 PO SCH (09:14)
[2016-11-08] MEDS: ECOTRIN 81 MG PO SCH (09:15)
[2016-11-08] MEDS: Pepcid 20 MG PO SCH (09:16)
[2016-11-08] MEDS: Zestril 5 MG PO SCH (09:16)
[2016-11-08] MEDS: Robitussin AC Syrup Unit Dose Cup PO PRN ×4 (10:05→22:19)
[2016-11-08] MEDS: solu-MEDROL 40 MG IV SCH ×2 (10:48→21:46)
[2016-11-08] MEDS: ROCEPHIN 1 Gm-D5w 50 ml Bag** 50 ML IV SCH (21:46)
[2016-11-09] MEDS: Robitussin AC Syrup Unit Dose Cup PO PRN ×4 (08:44→21:11)
[2016-11-09] MEDS: Pepcid 20 MG PO SCH (09:11)
[2016-11-09] MEDS: MAG-OX 400 PO SCH (09:11)
[2016-11-09] MEDS: ECOTRIN 81 MG PO SCH (09:11)
[2016-11-09] MEDS: Sodium Chloride 0.9% 1000 ML 1,000 ML IV SCH ×2 (09:11→19:45)
[2016-11-09] MEDS: Zestril 5 MG PO SCH (09:11)
[2016-11-09] MEDS: solu-MEDROL 40 MG IV SCH ×2 (09:11→21:11)
--- NOTE | 2016-11-09 12:08 | PCM.NOTE ---
Date and Time: 11/09/16 1203 Subjective Assessment: patient reports feeling worse today, gets extremely short of breath just walking to the restroom. no new complaints Objective Exam General Appearance: no apparent distress, alert Skin Exam: normal color, warm, dry Respiratory Exam: normal breath sounds, lungs clear, No respiratory distress Cardiovascular Exam: regular rate/rhythm, normal heart sounds Gastrointestinal/Abdomen Exam: soft, No tenderness, No mass Extremity Exam: normal inspection, normal range of motion OBJECTIVE DATA Vital Signs: Vital Signs - 24 hr Temp Pulse Resp BP Pulse Ox 11/09/16 07:39 97.4 F 80 20 139/68 93 L 11/09/16 04:00 97.7 F 66 20 137/68 86 L 11/09/16 00:00 98.4 F 97 H 16 130/59 93 L 11/08/16 21:50 93 L 11/08/16 19:43 93 L 11/08/16 19:35 98.0 F 100 H 24 165/79 96 11/08/16 16:00 98.6 F 82 19 142/66 93 L Pain Assessment - Last Documented Pain Intensity 0 Pain Scale Used 0-10 Pain Scale Intake and Output: Intake & Output 11/07/16 11/08/16 11/09/16 11/10/16 11:59 11:59 11:59 11:59 Intake Total 540 3062 Balance 540 3062 Weight 114.895 kg 115.122 kg Assessment/Plan (1) Dyspnea Current Visit: Yes Status: Acute Qualifiers: Dyspnea type: dyspnea on exertion Qualified Code(s): R06.09 - Other forms of dyspnea Assessment & Plan: was seen by pulmonology, appreciated their input. has appt for stress test with Dr Sandoval scheduled as outpatient. patient feels uncomfortable to go home based on her breathing problems and overall feeling poorly Code(s): R06.00 - DYSPNEA, UNSPECIFIED (2) UTI (urinary tract infection) Current Visit: Yes Status: Acute Qualifiers: Urinary tract infection type: acute cystitis Hematuria presence: without hematuria Qualified Code(s): N30.00 - Acute cystitis without hematuria Assessment & Plan: mixed jackelyn on culture Code(s): N39.0 - URINARY TRACT INFECTION, SITE NOT SPECIFIED
--- NOTE | 2016-11-09 15:20 | CONS ---
CONSULT DATE: 11/08/2016 HISTORY: Wanda Kessler is a 66 year-old woman who has been experiencing shortness of breath particularly worse for the past three to four weeks. The patient reported that she was seen by Dr. Hightower in the office and was noted to be extremely short of breath on minimal ambulation. She was hospitalized for further evaluation of this. She was subsequently discharged with negative work up. She had also seen Dr. Sandoval recently and is having cardiac work up performed. A pulmonary function test was performed about ten days ago was essentially unremarkable for insignificant obstructive or restrictive lung disease. The patient denies prior history of pulmonary problems. She has been a nonsmoker. She has a history of arthritis for which she sees Dr. Ferguson. The patient reported that she had developed renal insufficiency due to meloxicam which was recently changed. Her current renal function is normal. She also had a VQ scan performed about three weeks ago which was low probability. The patient was noted to have hypoxemia on admission. However, she states that she had six minute walk test at [facility] and did not desaturate. She denies any significant cough. She does complain of numbness that has been radiating down both arms. PAST MEDICAL HISTORY: Positive for hypertension, arthritis, and obesity. PAST SURGICAL HISTORY: No recent surgery. PERSONAL AND SOCIAL HISTORY: As above. MEDICATIONS: Home and current medications are reviewed. ALLERGIES: SULFA. PHYSICAL EXAMINATION: This is a middle age woman who appears comfortable. The patient is on room air and she is able to give history without any shortness of breath. Vital signs are noted. HEENT: Normocephalic. Pupils are reactive. She is noted to have poor dentition. Oral exam shows small oropharynx. NECK: Supple. CVS: First and second heart sounds are normal, regular, rhythmic. RESPIRATORY: Fairly clear to auscultation. ABDOMEN: Obese. EXTREMITIES: No significant edema is noted. LABORATORY DATA AND TESTS: X-rays radiology tests were all reviewed. ASSESSMENT: This is a 66 year old woman admitted with: 1) Shortness of breath which appears primarily cardiac in etiology and certainly warrants further cardiac work up. The patient has had echo and would certainly be required to rule out pulmonary hypertension but beside that she is scheduled to have nuclear stress with Dr. Sandoval. Given her symptoms of numbness radiating down the arms certainly cardiac etiology needs to be excluded. 2) Mild hypoxemia. Again may not qualify for home oxygen therapy and would require assessment upon discharge. 3) The patient has history of arthritis but pulmonary function test does not suggest interstitial involvement. 4) Obesity. 5) Possible obstructive sleep apnea? RECOMMENDATIONS: I agree with current treatment. She certainly needs to follow with cardiology and if cardiac work up is negative I will recommend cardiopulmonary exercise test. Chest x-ray was reviewed given diffusion capacity normalizes, total lung flow volume loop is within normal limits. I do not think a CT chest is going to give any additional information. Certainly an echo would be worthwhile reviewing for pulmonary hypertension though. The patient may also benefit from some weight reduction. Will continue to follow in outpatient setting. Thank you, Dr. Hightower, for allowing me to participate in the care of Wanda Kessler.
[2016-11-09] MEDS: CHLORASEPTIC SPRAY 180 ML PO PRN ×2 (18:15→22:40)
[2016-11-09] MEDS: TYLENOL 325 MG PO PRN (19:41)
[2016-11-09] MEDS: ROCEPHIN 1 Gm-D5w 50 ml Bag** 50 ML IV SCH (21:10)
[2016-11-10] MEDS: TYLENOL 325 MG PO PRN (01:15)
[2016-11-10] MEDS ORDERED: Nitrostat 0.4 MG Tablet SL PRN (06:06)
--- NOTE | 2016-11-10 06:09 | PCM.NOTE ---
Date and Time: 11/10/16606 Subjective Assessment: patient c/o left arm pain and tingling through the night, denies chest pain. also has some diaphoresis, she continues to have significant exertional dyspnea. Objective Exam General Appearance: no apparent distress, alert Respiratory Exam: normal breath sounds, lungs clear, No respiratory distress Cardiovascular Exam: regular rate/rhythm, normal heart sounds Gastrointestinal/Abdomen Exam: soft, No tenderness, No mass Extremity Exam: normal inspection, normal range of motion OBJECTIVE DATA Vital Signs: Vital Signs - 24 hr Temp Pulse Resp BP Pulse Ox 11/10/16 04:00 97.7 F 58 L 15 159/67 94 L 11/09/16 23:19 98.5 F 66 20 135/71 93 L 11/09/16 20:45 67 20 93 L 11/09/16 20:00 98.0 F 77 20 139/74 96 11/09/16 18:00 20 11/09/16 16:00 98.4 F 74 20 142/68 91 L 11/09/16 12:10 97.8 F 78 20 140/68 94 L 11/09/16 07:39 97.4 F 80 20 139/68 93 L Pain Assessment - Last Documented Pain Intensity 6 Pain Scale Used [facility] Intake and Output: Intake & Output 11/07/16 11/08/16 11/09/16 11/10/16 11:59 11:59 11:59 11:59 Intake Total 540 3062 3027 Balance 540 3062 3027 Weight 114.895 kg 115.122 kg Assessment/Plan (1) Dyspnea Current Visit: Yes Status: Acute Qualifiers: Dyspnea type: dyspnea on exertion Qualified Code(s): R06.09 - Other forms of dyspnea Code(s): R06.00 - DYSPNEA, UNSPECIFIED (2) UTI (urinary tract infection) Current Visit: Yes Status: Acute Qualifiers: Urinary tract infection type: acute cystitis Hematuria presence: without hematuria Qualified Code(s): N30.00 - Acute cystitis without hematuria Code(s): N39.0 - URINARY TRACT INFECTION, SITE NOT SPECIFIED (3) Left arm pain Current Visit: Yes Status: Acute Assessment & Plan: check ekg, troponin. continue 81mg asa and add nitro prn. concern for cardiac symptoms. Code(s): M79.602 - PAIN IN LEFT ARM
[2016-11-10] MEDS: Sodium Chloride 0.9% 1000 ML 1,000 ML IV SCH ×2 (07:09→15:57)
[2016-11-10] MEDS: solu-MEDROL 40 MG IV SCH ×2 (07:40→22:12)
[2016-11-10] MEDS: Zestril 5 MG PO SCH (07:40)
[2016-11-10] MEDS: Pepcid 20 MG PO SCH (07:40)
[2016-11-10] MEDS: ECOTRIN 81 MG PO SCH (07:40)
[2016-11-10] MEDS: MAG-OX 400 PO SCH (07:40)
[2016-11-10] MEDS: Robitussin AC Syrup Unit Dose Cup PO PRN ×2 (07:44→20:12)
[2016-11-10] MEDS: CHLORASEPTIC SPRAY 180 ML PO PRN (13:51)
[2016-11-10] MEDS: ROCEPHIN 1 Gm-D5w 50 ml Bag** 50 ML IV SCH (22:11)
[2016-11-10] MEDS: Valium 5 MG PO PRN (22:11)
[2016-11-11] MEDS: Sodium Chloride 0.9% 1000 ML 1,000 ML IV SCH (01:31)
[2016-11-11] MEDS: CHLORASEPTIC SPRAY 180 ML PO PRN ×3 (02:52→21:48)
[2016-11-11] MEDS ORDERED: Catapres 0.1 MG PO ONE (03:55)
[2016-11-11 06:20] LABS: Mean Corpuscular Hemoglobin 27.6 pg (26-32); Mean Platelet Volume 9.1 fl (6-9.5); Platelet Count 398 K/mm3 (150-450); Red Blood Count 3.84 M/mm3 (4.1-5.4); Red Cell Distribution Width 13.8 % (11.5-14.0); White Blood Count 13.8 K/mm3 (4.0-10.5)
[2016-11-11 06:38] LABS: ALBUMIN 2.8 g/dL (3.4-5.0); ANION GAP 15.8 MEQ/L (5-15); BILIRUBIN,TOTAL 0.1 mg/dL (0.2-1.0); Carbon Dioxide 21.9 mEq/L (21-32); Potassium 4.6 mEq/L (3.5-5.1); Total Protein 6.3 gm/dL (6.4-8.2)
[2016-11-11 07:09] LABS: BAND 2 % (0.0-2.0); Platelet Estimate NORMAL (NORMAL); Total Cells Counted 100; Toxic Granulation 1+
[2016-11-11] MEDS: Pepcid 20 MG PO SCH (08:15)
[2016-11-11] MEDS: MAG-OX 400 PO SCH (08:15)
[2016-11-11] MEDS: Zestril 5 MG PO SCH (08:15)
[2016-11-11] MEDS: solu-MEDROL 40 MG IV SCH ×2 (08:15→21:40)
[2016-11-11] MEDS: ECOTRIN 81 MG PO SCH (08:15)
[2016-11-11] MEDS: Robitussin AC Syrup Unit Dose Cup PO PRN (08:18)
--- NOTE | 2016-11-11 08:58 | PCM.NOTE ---
Date and Time: 11/11/16851 Subjective Assessment: SHe is feeling much less short of breath than on admission. She had a brief episode of arm numbness last night which resolved spontaneously. Some dyspnea on exertion but decreased from the last few days. BP last night in the 180s, she did have a nosebleed. Was given clonidine an dit decreased into the 140s systolic. - Review of Systems Constitutional: No Fever Ears, Nose, & Throat: Epistaxis Objective Exam General Appearance: no apparent distress Neurologic Exam: alert, oriented x 3, cooperative Skin Exam: normal color, warm, dry Respiratory Exam: normal breath sounds, lungs clear, No crackles/rales, No rhonchi, No wheezing Cardiovascular Exam: regular rate/rhythm, normal heart sounds, No murmur Extremity Exam: No pedal edema, No swelling OBJECTIVE DATA Vital Signs: Vital Signs - 24 hr Temp Pulse Resp BP Pulse Ox 11/11/16 06:00 19 11/11/16 05:00 147/70 11/11/16 04:00 98.3 F 86 20 185/105 95 11/11/16 02:00 20 11/11/16 00:00 98.4 F 65 20 167/77 94 L 11/10/16 22:00 20 11/10/16 20:37 74 18 98 11/10/16 20:00 98.3 F 70 20 185/76 94 L 11/10/16 17:55 20 11/10/16 16:00 98.4 F 63 20 188/86 95 11/10/16 14:00 20 11/10/16 11:22 98.4 F 63 20 186/80 93 L 11/10/16 10:00 20 Pain Assessment - Last Documented Pain Intensity 6 Pain Scale Used 0-10 Pain Scale Intake and Output: Intake & Output 11/08/16 11/09/16 11/10/16 11/11/16 11:59 11:59 11:59 11:59 Intake Total 3062 3027 3411 Balance 3062 3027 3411 Weight 115.122 kg 116.981 kg Lab Results: Lab Results-Last 24 Hours 11/10/16 11/10/16 11/10/16 Range/Units 09:39 12:30 15:43 WBC (4.0-10.5) K/mm3 RBC (4.1-5.4) M/mm3 Hgb (12.0-16.0) gm/dl Hct (35-47) % MCV (78-100) fl MCH (26-32) pg MCHC (32-36) g/dl RDW (11.5-14.0) % Plt Count (150-450) K/mm3 MPV (6-9.5) fl Segmented Neutrophils (36.0-66.0) % Band Neutrophils (0.0-2.0) % Lymphocytes (Manual) (24-44) % Monocytes (Manual) (0.0-12.0) % Differential Comment Toxic Granulation Platelet Estimate (NORMAL) Sodium (136-145) mEq/L Potassium (3.5-5.1) mEq/L Chloride (98-107) mEq/L Carbon Dioxide (21-32) mEq/L Anion Gap (5-15) MEQ/L BUN (9-20) mg/dL Creatinine (0.55-1.30) mg/dl Estimated GFR ML/MIN Glucose (70-110) MG/DL Calcium (8.5-10.1) mg/dL Total Bilirubin (0.2-1.0) mg/dL AST (15-37) U/L ALT (12-78) U/L Alkaline Phosphatase (46-116) U/L Troponin I < 0.017 < 0.017 < 0.017 (0.000-0.056) ng/ml Serum Total Protein (6.4-8.2) gm/dL Albumin (3.4-5.0) g/dL 11/10/16 11/11/16 11/11/16 Range/Units 18:17 05:30 05:30 WBC 13.8 H (4.0-10.5) K/mm3 RBC 3.84 L (4.1-5.4) M/mm3 Hgb 10.6 L (12.0-16.0) gm/dl Hct 33.4 L (35-47) % MCV 87.0 (78-100) fl MCH 27.6 (26-32) pg MCHC 31.7 L (32-36) g/dl RDW 13.8 (11.5-14.0) % Plt Count 398 (150-450) K/mm3 MPV 9.1 (6-9.5) fl Segmented Neutrophils 81 H (36.0-66.0) % Band Neutrophils 2 (0.0-2.0) % Lymphocytes (Manual) 14 L (24-44) % Monocytes (Manual) 3 (0.0-12.0) % Differential Comment NORMAL Toxic Granulation 1+ Platelet Estimate NORMAL (NORMAL) Sodium 140 (136-145) mEq/L Potassium 4.6 (3.5-5.1) mEq/L Chloride 107 (98-107) mEq/L Carbon Dioxide 21.9 (21-32) mEq/L Anion Gap 15.8 H (5-15) MEQ/L BUN 19 (9-20) mg/dL Creatinine 1.01 (0.55-1.30) mg/dl Estimated GFR 58 ML/MIN Glucose 172 H (70-110) MG/DL Calcium 8.3 L (8.5-10.1) mg/dL Total Bilirubin 0.1 L (0.2-1.0) mg/dL AST 50 H (15-37) U/L ALT 69 (12-78) U/L Alkaline Phosphatase 59 (46-116) U/L Troponin I < 0.017 (0.000-0.056) ng/ml Serum Total Protein 6.3 L (6.4-8.2) gm/dL Albumin 2.8 L (3.4-5.0) g/dL Assessment/Plan (1) Dyspnea Current Visit: Yes Status: Acute Qualifiers: Dyspnea type: dyspnea on exertion Qualified Code(s): R06.09 - Other forms of dyspnea Assessment & Plan: Dr. Daly spoke with me last week, he believes more related to cardiac and pt is to f/u with Dr. Sandoval with a stress test as previously planned. She is still on IV antibiotics and steroids; will go ahead and send home on antibiotic and prednisone at discharge. Code(s): R06.00 - DYSPNEA, UNSPECIFIED (2) Hypertension Current Visit: No Status: Chronic Qualifiers: Hypertension type: essential hypertension Qualified Code(s): I10 - Essential (primary) hypertension Assessment & Plan: Will add norvasc and increase her lisinopril. When bp is controlled she can d/c home; will re-evaluate this evening. Code(s): I10 - ESSENTIAL (PRIMARY) HYPERTENSION (3) UTI (urinary tract infection) Current Visit: Yes Status: Acute Qualifiers: Urinary tract infection type: acute cystitis Hematuria presence: without hematuria Qualified Code(s): N30.00 - Acute cystitis without hematuria Assessment & Plan: Urine culture with mixed jackelyn. Still on rocephin for respiratory sx as above. Code(s): N39.0 - URINARY TRACT INFECTION, SITE NOT SPECIFIED (4) Hypomagnesemia Current Visit: Yes Status: Resolved Code(s): E83.42 - HYPOMAGNESEMIA (5) Acute kidney injury Current Visit: No Status: Resolved Code(s): N17.9 - ACUTE KIDNEY FAILURE, UNSPECIFIED (6) Osteoarthritis Current Visit: No Status: Chronic Qualifiers: Osteoarthritis location: unspecified site Code(s): M19.90 - UNSPECIFIED OSTEOARTHRITIS, UNSPECIFIED SITE (7) Cough Current Visit: Yes Status: Acute Assessment & Plan: no complaint this morning. Code(s): R05 - COUGH
[2016-11-11] MEDS ORDERED: NORVASC 5 MG PO SCH (10:00)
[2016-11-11] MEDS: Zestril 10 MG PO SCH (11:58)
[2016-11-11] MEDS: Valium 5 MG PO PRN ×2 (12:08→21:47)
[2016-11-11] MEDS ORDERED: NORVASC 5 MG PO ONE (17:55)
[2016-11-11] MEDS ORDERED: APRESOLINE 20 MG/ML INJ IV PRN (17:57)
[2016-11-11] MEDS: ROCEPHIN 1 Gm-D5w 50 ml Bag** 50 ML IV SCH (21:40)
[2016-11-12 08:06] VITALS: O2SAT 93
--- NOTE | 2016-11-12 08:55 | PCM.DS ---
Discharge Summary Date of Admission: 11/08/16 09:01 Admitting Physician: ARMANI ALVAREZ Primary Care Provider: ARMANI ALVAREZ Allergies Allergies Sulfa (Sulfonamide Antibiotics) Allergy (Verified 11/06/16 23:19) Hospital Summary - Hospital Course Hospital Course: She was out walking in the halls last night, less short of breath. Feeling better. - Vitals & Intake/Output Vital Signs: Vital Signs Temperature 97.6 F 11/12/16 08:05 Pulse Rate 58 L 11/12/16 08:05 Respiratory Rate 20 11/12/16 08:05 Blood Pressure 149/65 11/12/16 08:05 O2 Sat by Pulse Oximetry 93 L 11/12/16 08:05 Oxygen-Last Documented O2 Percentage 2 Liters = 28% Intake & Output: Intake & Output 11/09/16 11/10/16 11/11/16 11/12/16 11:59 11:59 11:59 11:59 Intake Total 3062 3027 3411 2810 Balance 3062 3027 3411 2810 Weight 115.122 kg 116.981 kg 117.571 kg 115.439 kg - Lab Result Diagrams: 11/11/16 05:30 11/11/16 05:30 - Procedures and Test Procedures and Tests throughout Hospitalization: Therapy Orders & Screens 11/10/16 06:04 EKG ROUTINE Comment: Diagnosis: PNEUMONIA Discharge Exam General Appearance: no apparent distress, obese Neurologic Exam: alert, oriented x 3, cooperative Skin Exam: normal color, warm, dry Respiratory Exam: lungs clear, diminished breath sounds, No crackles/rales, No rhonchi, No wheezing Cardiovascular Exam: regular rate/rhythm, normal heart sounds, No murmur Gastrointestinal/Abdomen Exam: soft, No tenderness, No distention Extremity Exam: No pedal edema, No swelling Back Exam: normal inspection Final Diagnosis/Problem List - Final Discharge Diagnosis/Problem (1) Dyspnea Current Visit: Yes Status: Acute Assessment & Plan: Much improved. Seeing DR. Sandoval on 11/29/16. F/u with me in 1 wk. Will d/c home on antibiotic and steroid. Dr. Bowens consulted and feels it is more a cardiac issue. (2) Hypertension Current Visit: No Status: Chronic Assessment & Plan: Improved, home on lisinopril 10mg and norvasc 10mg daily. (3) UTI (urinary tract infection) Current Visit: Yes Status: Acute Assessment & Plan: treated. (4) Hypomagnesemia Current Visit: Yes Status: Resolved Assessment & Plan: repleted. (5) Acute kidney injury Current Visit: No Status: Resolved Assessment & Plan: resolved with IV fluids. (6) Osteoarthritis Current Visit: No Status: Chronic (7) Cough Current Visit: Yes Status: Acute Assessment & Plan: improved; as above. - Discharge Disposition: Home, Self-Care Condition: Stable Prescriptions: New Amoxicillin/Potassium Clav [Augmentin 875-125 Tablet] 875 mg PO BID #10 tablet Prednisone 20 mg [Deltasone 20 mg] 20 mg PO DAILY #17 tablet Magnesium Oxide 400 mg [Mag-Ox 400] 400 mg PO DAILY #30 tablet Nitroglycerin 0.4 mg Tablet [Nitrostat 0.4 MG Tablet] 0.4 mg SL Q5MIN PRN MR X 3 PRN #1 bottle PRN Reason: Chest Pain Amlodipine Besylate 5 mg [Norvasc 5 mg] 10 mg PO QAM #30 tablet Guaifenesin/Codeine 5 ml [Robitussin AC Syrup Unit Dose Cup] 5 ml PO Q4H PRN PRN #4 oz PRN Reason: Cough Lisinopril 10 mg [Zestril 10 MG] 10 mg PO DAILY #30 tablet Continue Aspirin [Aspirin EC] 81 mg PO DAILY Discontinued Lisinopril 5 mg [Zestril 5 MG] 5 mg PO DAILY Additional Instructions: MAKE A FOLLOW UP APPOINTMENT WITH DR. ALVAREZ IN 2 WEEKS. Follow up with: [facility] BOWENS [ACTIVE STAFF] - 11/27/16 2:00 pm ([facility] ) ARMANI ALVAREZ [Primary Care Provider] - Call for Appointment (CALL FOR AN APPOINTMENT FOR 2 WEEKS) Forms: Patient Portal Information
[2016-11-12] MEDS: MAG-OX 400 PO SCH (09:18)
[2016-11-12] MEDS: ECOTRIN 81 MG PO SCH (09:18)
[2016-11-12] MEDS: solu-MEDROL 40 MG IV SCH (09:18)
[2016-11-12] MEDS: Zestril 10 MG PO SCH (09:18)
[2016-11-12] MEDS: Pepcid 20 MG PO SCH (09:18)
[2016-11-12] MEDS: Robitussin AC Syrup Unit Dose Cup PO PRN (09:20)
[2016-11-12] MEDS ORDERED: NORVASC 5 MG PO SCH (10:00)
[2016-11-12 13:02] VITALS: BP 180/79; PULSE 80
== END 2016-11-12 11:05 | disposition home or self-care (01) | DRG 204 ==
LOC: ED 23:03 → MED SURG 11-07 04:51 → INTOOBSV 11-07 09:01 → OBSVTOIN 11-07 09:01
PROVIDERS: ADMIT Family Medicine; ATTEND Family Medicine
DX: R06.09 Other forms of dyspnea (principal); N30.00 Acute cystitis without hematuria; N17.9 Acute kidney failure, unspecified; I10 Essential (primary) hypertension; E83.42 Hypomagnesemia; E86.0 Dehydration; M19.90 Unspecified osteoarthritis, unspecified site; R09.02 Hypoxemia; R05 Cough; E66.9 Obesity, unspecified; M79.602 Pain in left arm; G40.909 Epilepsy, unspecified, not intractable, without status epilepticus
CPT/HCPCS: 36000; 36415; 36600; 71010; 80048; 80053; 81000; 82150; 82375; 82803; 83605; 83690; 83735; 84484; 85025; 87040; 87086; 93005; 93041; 93268; 94760; 94762; 96374; 99285; G0378; J0696; J2920; J3360; J3475; A9270-GY

== ENCOUNTER 2017-03-31 13:59 | Emergency (ER) | payer MEDICARE ==
--- NOTE | 2017-03-31 15:13 | ERPHSYRPT ---
- History of Present Illness Time Seen by Provider: 03/31/17 14:58 Source: patient Exam Limitations: no limitations Patient Subjective Stated Complaint: pt c/o shortness of breath. The shortness of breath has been going on for 4 months. pt was seen here and [facility] for a total 6 PE's. The last 3 days the shortness of breath has gotten worse. pt called 's office and they advised her to come to the er. pt had a holter monitor test done and was only using oxygen at night. since friday of last week pt started wearing oxygen all the time now. Triage Nursing Assessment: pt walked into the er and was sob. nurse got pt a wheelchiar and pushed pt to the er room. pt respirations are fast and regular. lung sounds anterior are clear and posterior clear. skin warm pink and dry. Physician History: The patient is a 66-year-old female who comes in complaining of increasing shortness of breath for the last several days. She denies cough. She denies pain. She denies swelling or pain in the upper extremities. She has a significant past history of multiple DVTs and PEs. She's had 2 DVTs in each leg. She had a PE and within a few weeks had multiple small PEs. Her last PE was in September. Her primary care provider recommended she come to the emergency room today. Her past medical history is significant for DVT, PE, GERD , arthritis, and hypertension. Timing/Duration: day(s) (3), gradual onset Activities at Onset: none Severity of Dyspnea-Max: moderate Severity of Dyspnea-Current: moderate Possible Cause: frequent episodes Modifying Factors: Improves With: oxygen Associated Symptoms: No calf pain, No heart racing, No productive cough Allergies/Adverse Reactions: Sulfa (Sulfonamide Antibiotics) Allergy (Verified 11/06/16 23:19) Home Medications: Aspirin [Aspirin EC] 81 mg PO DAILY 11/06/16 [History] Apixaban [Eliquis] 5 mg PO DAILY 03/31/17 [History] Baicalin/Catechin/Citrated Znc [[id number] Capsule] 500 mg PO BID 03/31/17 [ History] Hydrocodone Bit/Acetaminophen [Hydrocodon-Acetaminoph 7.5-325] 1 each PO Q4- 6HPRN PRN 03/31/17 [History] Lisinopril 10 mg [Zestril 10 MG] 5 mg PO DAILY 03/31/17 [History] Multivitamin with Minerals [Hair, Skin and Nails] 500 mcg PO DAILY 03/31/17 [ History] Omeprazole 20 mg PO DAILY 03/31/17 [History] Ranitidine HCl 150 mg PO DAILY 03/31/17 [History] Tolterodine Tartrate [Detrol LA] 2 mg PO DAILY 03/31/17 [History] Hx Tetanus, Diphtheria Vaccination/Date Given: No Hx Influenza Vaccination/Date Given: Yes (last year) Hx Pneumococcal Vaccination/Date Given: Yes (last year) Immunizations Up to Date: Yes - Review of Systems Constitutional: No Fever, No Chills Eyes: No Symptoms Ears, Nose, & Throat: No Symptoms Respiratory: Dyspnea, Dyspnea on Exertion ([place]), No Cough Cardiac: No Chest Pain, No Edema, No Syncope Abdominal/Gastrointestinal: No Abdominal Pain, No Nausea, No Vomiting, No Diarrhea Genitourinary Symptoms: No Dysuria Musculoskeletal: No Back Pain, No Neck Pain Skin: No Rash Neurological: No Dizziness, No Focal Weakness, No Sensory Changes Psychological: No Symptoms Endocrine: No Symptoms Hematologic/Lymphatic: No Symptoms Immunological/Allergic: No Symptoms All Other Systems: Reviewed and Negative - Past Medical History Pertinent Past Medical History: Yes Neurological History: Seizures, Stroke ENT History: No Pertinent History Cardiac History: Hypertension Respiratory History: Pneumonia, Pulmonary Embolism Endocrine Medical History: No Pertinent History Musculoskeletal History: Osteoarthritis GI Medical History: No Pertinent History History: No Pertinent History Psycho-Social History: No Pertinent History Female Reproductive Disorders: No Pertinent History Other Medical History: admitted recently with shortness of breath - Past Surgical History Past Surgical History: Yes Neuro Surgical History: No Pertinent History Cardiac: No Pertinent History Respiratory: No Pertinent History Gastrointestinal: No Pertinent History Genitourinary: No Pertinent History Musculoskeletal: Other Female Surgical History: Tubal Ligation Other Surgical History: left rotator cuff surgery, cyst r arm removed - Social History Smoking Status: Never smoker Exposure to second hand smoke: No Drug Use: none Patient Lives Alone: No - Nursing Vital Signs Nursing Vital Signs: Initial Vital Signs Pulse Rate 109 H 03/31/17 14:00 Respiratory Rate 34 H 03/31/17 14:00 Blood Pressure 110/80 03/31/17 14:00 O2 Sat by Pulse Oximetry 94 L 03/31/17 14:00 Pain Scale Pain Intensity 0 - Physical Exam General Appearance: no apparent distress, alert Eye Exam: PERRL/EOMI Neck Exam: normal inspection, supple Respiratory Exam: normal breath sounds Cardiovascular/Chest Exam: normal heart sounds, regular rate/rhythm Abdominal/Gastrointestinal Exam: soft, No tenderness, No distention, No mass Rectal Exam: not done Extremity Exam: non-tender, normal range of motion, normal inspection, no calf tenderness, no pedal edema Neurologic Exam: alert, oriented x 3, cooperative, rotary cutter II-XII nml as tested, sensation nml, No motor deficits Skin Exam: normal color, warm, No dry SpO2 Interpretation: normal SpO2: 93 Oxygen Delivery: Nasal Cannula - Course EKG Interpreted by Me: RATE, Sinus Rhythm, Q-wave (new Q waves in inf and Ant leads compared to EKG 11/10/16.) - CT Exams Chest CT Interpretation: Tele-radiologist Report, Other (neg for PE, bilateral atelecstasis, now bilateral hazy airspace opacities per Dr Chavez) - Radiology Ultrasound Exam Venous Lower Extremity Ultrasound: tele radiology report, negative, Other (no DVT per Dr Chavez.) Ordered Tests: Active Orders 24 hr Category Date Time Status Track Laborer STAT Care 03/31/17 15:09 Active EKG-ER Only STAT Care 03/31/17 15:09 Active IV Insertion STAT Care 03/31/17 15:09 Active Oxygen-ED Only NASAL CANNULA 2 lpm Care 03/31/17 15:09 Active Pulse Oximetry (ED) STAT Care 03/31/17 15:09 Active CHEST WITH CONTRAST [CT] Stat Exams 03/31/17 15:10 Completed VENOUS BILATERAL EXTREMITY [US] Stat Exams 03/31/17 15:11 Completed CBC W DIFF Stat Lab 03/31/17 14:10 Completed CMP Stat Lab 03/31/17 14:10 Completed D-DIMER QUANTITATION Stat Lab 03/31/17 14:10 Completed Lactic Acid Stat Lab 03/31/17 15:09 Completed NT PRO BNP Stat Lab 03/31/17 14:10 Completed PROTIME WITH INR Stat Lab 03/31/17 14:10 Completed TROPONIN Q3H Lab 03/31/17 15:15 Completed TROPONIN Q3H Lab 03/31/17 18:15 Ordered TROPONIN Q3H Lab 03/31/17 21:15 Ordered TROPONIN Q3H Lab 04/01/17 00:15 Ordered TROPONIN Q3H Lab 04/01/17 03:15 Ordered Medication Summary Generic Name Dose Route Start Last Admin Trade Name Darleen PRN Reason Stop Dose Admin Ceftriaxone Sodium/Dextrose 1 g in 50 mls @ 100 mls/hr 03/31/17 17:13 17:15 Rocephin 1 Gm-D5w 50 Ml Bag IV 03/31/17 17:42 100 mls/hr STAT STA Administration Discontinued Medications Generic Name Dose Route Start Last Admin Trade Name Darleen PRN Reason Stop Dose Admin Ceftriaxone Sodium/Dextrose Confirm 03/31/17 17:15 Rocephin 1 Gm-D5w 50 Ml Bag Administered 03/31/17 17:16 Dose 1 g in 50 mls @ ud IV .STK-MED ONE Lab/Rad Data: Laboratory Result Diagrams 03/31/17 14:10 03/31/17 14:10 Laboratory Results 03/31/17 03/31/17 03/31/17 Range/Units 15:15 15:09 14:10 WBC (4.0-10.5) K/mm3 RBC (4.1-5.4) M/mm3 Hgb (12.0-16.0) gm/dl Hct (35-47) % MCV (78-100) fl MCH (26-32) pg MCHC (32-36) g/dl RDW (11.5-14.0) % Plt Count (150-450) K/mm3 MPV (6-9.5) fl Gran % (36.0-66.0) % Lymphocytes % (24.0-44.0) % Monocytes % (0.0-12.0) % Eosinophils % (0.00-5.0) % Basophils % (0.0-0.4) % Basophils # (0-0.4) INR 1.49 (0.8-3.0) D-Dimer 257 (0-500) ng/mL Sodium (136-145) mEq/L Potassium (3.5-5.1) mEq/L Chloride (98-107) mEq/L Carbon Dioxide (21-32) mEq/L Anion Gap (5-15) MEQ/L BUN (9-20) mg/dL Creatinine (0.55-1.30) mg/dl Estimated GFR ML/MIN Glucose (70-110) MG/DL Lactic Acid 3.1 H (0.4-2.0) Calcium (8.5-10.1) mg/dL Total Bilirubin (0.2-1.0) mg/dL AST (15-37) U/L ALT (12-78) U/L Alkaline Phosphatase (46-116) U/L Troponin I < 0.017 (0.000-0.056) ng/ml NT-Pro-B Natriuret Pep (0-125) pg/ml Serum Total Protein (6.4-8.2) gm/dL Albumin (3.4-5.0) g/dL 03/31/17 03/31/17 Range/Units 14:10 14:10 WBC 7.9 (4.0-10.5) K/mm3 RBC 4.62 (4.1-5.4) M/mm3 Hgb 12.3 (12.0-16.0) gm/dl Hct 39.0 (35-47) % MCV 84.4 (78-100) fl MCH 26.6 (26-32) pg MCHC 31.5 L (32-36) g/dl RDW 14.5 H (11.5-14.0) % Plt Count 408 (150-450) K/mm3 MPV 9.4 (6-9.5) fl Gran % 63.7 (36.0-66.0) % Lymphocytes % 25.9 (24.0-44.0) % Monocytes % 10.2 (0.0-12.0) % Eosinophils % 0.1 (0.00-5.0) % Basophils % 0.1 (0.0-0.4) % Basophils # 0.01 (0-0.4) INR (0.8-3.0) D-Dimer (0-500) ng/mL Sodium 140 (136-145) mEq/L Potassium 4.3 (3.5-5.1) mEq/L Chloride 104 (98-107) mEq/L Carbon Dioxide 22.8 (21-32) mEq/L Anion Gap 17.5 H (5-15) MEQ/L BUN 12 (9-20) mg/dL Creatinine 1.15 (0.55-1.30) mg/dl Estimated GFR 50 ML/MIN Glucose 182 H (70-110) MG/DL Lactic Acid (0.4-2.0) Calcium 9.7 (8.5-10.1) mg/dL Total Bilirubin 0.50 (0.2-1.0) mg/dL AST 20 (15-37) U/L ALT 26 (12-78) U/L Alkaline Phosphatase 73 (46-116) U/L Troponin I (0.000-0.056) ng/ml NT-Pro-B Natriuret Pep 776 H (0-125) pg/ml Serum Total Protein 7.5 (6.4-8.2) gm/dL Albumin 3.4 (3.4-5.0) g/dL - Progress Progress: unchanged Air Movement: good Blood Culture(s) Obtained: No Antibiotics given: Yes Counseled pt/family regarding: lab results, diagnosis, need for follow-up, rad results - Departure Time of Disposition: 17:27 Departure Disposition: Home Clinical Impression: Pneumonia Condition: Stable Critical Care Time: No Additional Instructions: You have shortness of breath that was caused by mild pneumonia. The CT scan did not show any pulmonary emboli nor did it show any deep vein thromboses. You were given Rocephin 1 g by IV in the ER. Continue therapy with azithromycin as directed. Follow-up in 2-3 days. Prescriptions: Azithromycin 250 mg [Zithromax 250 MG TABLET] 250 mg PO ZPACK #6 tablet
[2017-03-31 15:20] LABS: BASOPHIL % 0.1 % (0.0-0.4); Eosinophil % 0.1 % (0.00-5.0); Granulocytes % 63.7 % (36.0-66.0); Lymphocytes % 25.9 % (24.0-44.0); Mean Cell Volume 84.4 fl (78-100); Mean Corpuscular Hemoglobin 26.6 pg (26-32); Mean Platelet Volume 9.4 fl (6-9.5); Monocytes % 10.2 % (0.0-12.0); Platelet Count 408 K/mm3 (150-450); Red Blood Count 4.62 M/mm3 (4.1-5.4); Red Cell Distribution Width 14.5 % (11.5-14.0); White Blood Count 7.9 K/mm3 (4.0-10.5)
[2017-03-31 15:24] LABS: INR 1.49 (0.8-3.0); PROTIME 16.9 SECONDS (9.95-12.35)
[2017-03-31 15:24] LABS: Lactic Acid 3.1 (0.4-2.0)
[2017-03-31 15:50] LABS: ALBUMIN 3.4 g/dL (3.4-5.0); ANION GAP 17.5 MEQ/L (5-15); BILIRUBIN,TOTAL 0.5 mg/dL (0.2-1.0); Carbon Dioxide 22.8 mEq/L (21-32); Potassium 4.3 mEq/L (3.5-5.1); Total Protein 7.5 gm/dL (6.4-8.2)
--- NOTE | 2017-03-31 16:58 | XRAY ---
Indication: Short of breath. Multiple contiguous images obtained through the chest using 80 cc of Isovue 370 contrast and PE protocol. Comparison: October 28, 2016. There is satisfactory opacification of the pulmonary arteries. Again no filling defect or pulmonary embolus. Heart remains borderline enlarged. No pericardial effusion. Aorta is normal in course and caliber. No pathologic mediastinal/hilar lymphadenopathy. Stable small hiatal hernia. Examination of the lung parenchyma demonstrates new multifocal bilateral subsegmental and dependent atelectasis. Also new hazy background airspace opacities. No effusion. Bony thorax intact again with mild degenerative changes throughout the spine. Limited upper abdomen again demonstrates fatty liver and cholesterol gallstones Impression: 1. Again negative for pulmonary embolus. 2. New multifocal bilateral atelectasis. 3. Also new bilateral hazy airspace opacities. Correlate clinically. 4. Stable small hiatal hernia, fatty liver, and cholesterol gallstones. CT DI 23.69
--- NOTE | 2017-03-31 17:08 | XRAY ---
Indication: Short of breath. History of clots. Two-dimensional sonogram and color Doppler imaging of the major venous vessels of the left and right leg was performed. Comparison: None No thrombus seen in the examined deep venous vessels of the left and right leg including greater saphenous veins. Veins demonstrate normal compressibility. Venous waveforms are normal with and without augmentation. Impression: Left and right leg negative for DVT. Comment: Preliminary report was given.
[2017-03-31] MEDS ORDERED: ROCEPHIN 1 Gm-D5w 50 ml Bag** 1 G/50 ML IVPB IV STA (17:13)
[2017-03-31] MEDS ORDERED: ROCEPHIN 1 Gm-D5w 50 ml Bag** 1 G/50 ML IVPB IV ONE (17:15)
[2017-03-31 17:47] VITALS: BP 122/56
[2017-03-31 18:08] VITALS: PULSE 86; O2SAT 96
== END 2017-03-31 18:05 | disposition home or self-care (01) ==
LOC: ED 13:59
DX: J18.9 Pneumonia, unspecified organism (principal); Z86.711 Personal history of pulmonary embolism; Z86.718 Personal history of other venous thrombosis and embolism; I10 Essential (primary) hypertension; Z79.899 Other long term (current) drug therapy; Z79.01 Long term (current) use of anticoagulants
CPT/HCPCS: 36000; 36415; 71260; 80053; 83605; 83880; 84484; 85025; 85379; 85610; 93005; 93041; 93970; 96365; 99285; J0696

== ENCOUNTER 2017-04-07 11:45 | Inpatient (IN) | payer MEDICARE ==
[2017-04-07] MEDS ORDERED: PROVENTIL 2.5 MG/3 ML NEB IH ONE (12:16)
[2017-04-07] MEDS: PROVENTIL 2.5 MG/3 ML NEB IH SCH ×4 (12:23→23:17)
[2017-04-07 12:32] LABS: BASOPHIL % 0.1 % (0.0-0.4); Lymphocytes % 11.1 % (24.0-44.0); Mean Cell Volume 83.3 fl (78-100); Mean Corpuscular Hemoglobin 26.3 pg (26-32); Mean Platelet Volume 8.5 fl (6-9.5); Monocytes % 7.8 % (0.0-12.0); Platelet Count 504 K/mm3 (150-450); Red Blood Count 4.79 M/mm3 (4.1-5.4); Red Cell Distribution Width 14.7 % (11.5-14.0); White Blood Count 13.3 K/mm3 (4.0-10.5)
[2017-04-07] MEDS ORDERED: solu-MEDROL 125 MG IV SCH (13:00)
[2017-04-07] MEDS ORDERED: ROCEPHIN 1 Gm-D5w 50 ml Bag** 1 G/50 ML IVPB IV SCH (13:00)
[2017-04-07 13:06] LABS: ALBUMIN 3.5 g/dL (3.4-5.0); ANION GAP 15.8 MEQ/L (5-15); BILIRUBIN,TOTAL 0.5 mg/dL (0.2-1.0); Carbon Dioxide 25.8 mEq/L (21-32); Potassium 5.3 mEq/L (3.5-5.1); Total Protein 8.3 gm/dL (6.4-8.2)
--- NOTE | 2017-04-07 13:19 | XRAY ---
Indication: Short of breath. Pneumonia. Comparison: November 06, 2016. PA/lateral chest demonstrates new infiltrate/atelectasis in the right midlung and lingula without consolidation/large effusion. Heart is not enlarged. Bony thorax intact again with osteopenia, degenerative changes, and left shoulder surgery. Impression: New right midlung and lingular infiltrates/atelectasis.
[2017-04-07] MEDS ORDERED: PROVENTIL 2.5 MG/3 ML NEB IH PRN (15:00)
[2017-04-07] MEDS ORDERED: NORCO 7.5/325 MG TAB PO PRN (16:06)
[2017-04-07] MEDS ORDERED: Sodium Chloride 0.9% 1000 ML 1,000 ML ONE (17:23)
[2017-04-07] MEDS: Sodium Chloride 0.9% 1000 ML 1,000 ML IV SCH (17:25)
[2017-04-07 18:39] LABS: Bilirubin NEGATIVE (NEGATIVE); Blood NEGATIVE Ery/ul (0-5); COMPLETE URINE MICROSCOPIC? YES; Collection Type CLEAN CATCH; Glucose NEGATIVE (NEGATIVE); Leukocyte Esterase NEGATIVE (NEGATIVE)
[2017-04-07 18:40] LABS: Bacteria FEW /HPF (NEGATIVE); Epithelial Cells FEW /HPF (FEW); Mucus SLIGHT /HPF (NEGATIVE)
[2017-04-07] MEDS: ELIQUIS PO SCH (21:34)
[2017-04-07] MEDS: solu-MEDROL 125 MG IV SCH (21:35)
[2017-04-07] MEDS: Pepcid 20 MG PO SCH (21:35)
[2017-04-07] MEDS ORDERED: NON-FORMULARY ITEM (Ranitidine Hcl [Ranitidine Hcl] 150 MG) PO SCH (22:00)
[2017-04-08] MEDS: PROVENTIL 2.5 MG/3 ML NEB IH SCH ×6 (03:19→23:05)
[2017-04-08] MEDS: Sodium Chloride 0.9% 1000 ML 1,000 ML IV SCH ×2 (03:40→14:39)
[2017-04-08] MEDS: solu-MEDROL 125 MG IV SCH ×3 (06:17→21:26)
--- NOTE | 2017-04-08 08:15 | PCM.NOTE ---
Date and Time: 04/08/17811 Subjective Assessment: Pt still extremely short of breath with any movement, including up to bedside commode. Was sweaty last night, no fever was recorded. Appetite is good for the first time in 4 days. - Review of Systems Constitutional: Night Sweats Respiratory: Cough, Short Of Breath Objective Exam General Appearance: no apparent distress Neurologic Exam: alert, oriented x 3, cooperative Skin Exam: normal color, warm, dry Respiratory Exam: diminished breath sounds, No crackles/rales, No rhonchi, No wheezing Cardiovascular Exam: regular rate/rhythm, normal heart sounds, No murmur Extremity Exam: No pedal edema, No swelling OBJECTIVE DATA Vital Signs: Vital Signs - 24 hr Temp Pulse Resp BP Pulse Ox 04/08/17 06:58 97.6 F 80 20 120/76 95 04/08/17 06:54 75 18 94 L 04/08/17 04:00 97.5 F 81 24 122/56 95 04/08/17 03:22 84 18 94 L 04/08/17 00:00 98.2 F 97 H 20 125/74 92 L 04/07/17 23:26 100 H 20 89 L 04/07/17 20:00 98.1 F 104 H 20 121/67 89 L 04/07/17 19:04 98 H 22 91 L 04/07/17 16:00 98.2 F 102 H 18 115/70 04/07/17 14:56 96 H 22 92 L 04/07/17 12:25 104 H 26 H 92 L 04/07/17 12:02 97.6 F 114 H 22 121/61 92 L 04/07/17 11:53 97.6 F 96 H 22 121/61 92 L Oxygen-Last 24 hours O2 Percentage 5 Liters = 40% O2 Percentage 4 Liters = 36% Pain Assessment - Last Documented Pain Intensity 0 Pain Scale Used 0-10 Pain Scale Intake and Output: Intake & Output 04/05/17 04/06/17 04/07/17 04/08/17 11:59 11:59 11:59 11:59 Intake Total 1804 Output Total 1200 Balance 604 Weight 104.372 kg Lab Results: Lab Results-Last 24 Hours 04/07/17 04/07/17 04/07/17 Range/Units 12:15 12:20 12:20 WBC 13.3 H (4.0-10.5) K/mm3 RBC 4.79 (4.1-5.4) M/mm3 Hgb 12.6 (12.0-16.0) gm/dl Hct 39.9 (35-47) % MCV 83.3 (78-100) fl MCH 26.3 (26-32) pg MCHC 31.6 L (32-36) g/dl RDW 14.7 H (11.5-14.0) % Plt Count 504 H (150-450) K/mm3 MPV 8.5 (6-9.5) fl Gran % 81.0 H (36.0-66.0) % Lymphocytes % 11.1 L (24.0-44.0) % Monocytes % 7.8 (0.0-12.0) % Eosinophils % 0.0 (0.00-5.0) % Basophils % 0.1 (0.0-0.4) % Basophils # 0.01 (0-0.4) Sodium 138 (136-145) mEq/L Potassium 5.3 H (3.5-5.1) mEq/L Chloride 102 (98-107) mEq/L Carbon Dioxide 25.8 (21-32) mEq/L Anion Gap 15.8 H (5-15) MEQ/L BUN 18 (9-20) mg/dL Creatinine 1.27 (0.55-1.30) mg/dl Estimated GFR 44 ML/MIN Glucose 132 H (70-110) MG/DL Calcium 10.4 H (8.5-10.1) mg/dL Total Bilirubin 0.50 (0.2-1.0) mg/dL AST 34 (15-37) U/L ALT 18 (12-78) U/L Alkaline Phosphatase 77 (46-116) U/L NT-Pro-B Natriuret Pep 111 (0-125) pg/ml Serum Total Protein 8.3 H (6.4-8.2) gm/dL Albumin 3.5 (3.4-5.0) g/dL Ur Collection Type CLEAN CATCH Urine Color YELLOW (YELLOW) Urine Appearance CLEAR (CLEAR) Urine pH 5.0 (5-6) Ur Specific [place] 1.025 (1.005-1.025) Urine Protein TRACE (Negative) Urine Ketones NEGATIVE (NEGATIVE) Urine Blood NEGATIVE (0-5) Mariusz/ul Urine Nitrite NEGATIVE (NEGATIVE) Urine Bilirubin NEGATIVE (NEGATIVE) Urine Urobilinogen NORMAL (0-1) mg/dL Ur Leukocyte Esterase NEGATIVE (NEGATIVE) Ur Epithelial Cells FEW (FEW) /HPF Urine Bacteria FEW (NEGATIVE) /HPF Urine Mucus SLIGHT (NEGATIVE) /HPF Urine Glucose NEGATIVE (NEGATIVE) mg/dL Specimen Received [id number] Radiology Exams: Radiology Procedures Category Date Time Status CHEST 2 VIEWS (PA AND LAT) Routine Exams 04/07/17 12:25 Completed Assessment/Plan (1) Pneumonia Current Visit: Yes Status: Acute Qualifiers: Pneumonia type: due to unspecified organism Laterality: right Lung location: middle lobe of lung Qualified Code(s): J18.1 - Lobar pneumonia, unspecified organism Assessment & Plan: Will change IV rocephin to IV levaquin. Discussed with pt possibility of side effects most notably muscle/tendon aches and damage. However I think the benefit outweighs the risk in this patient. Code(s): J18.9 - PNEUMONIA, UNSPECIFIED ORGANISM (2) Dyspnea Current Visit: Yes Status: Acute Qualifiers: Assessment & Plan: She is less dyspneic at rest today than yesterday. Code(s): R06.00 - DYSPNEA, UNSPECIFIED (3) Failure of outpatient treatment Current Visit: Yes Status: Acute Code(s): Z78.9 - OTHER SPECIFIED HEALTH STATUS (4) Hypertension Current Visit: No Status: Chronic Qualifiers: Hypertension type: essential hypertension Assessment & Plan: BP excellent here, 120s systolic. Code(s): I10 - ESSENTIAL (PRIMARY) HYPERTENSION
[2017-04-08] MEDS: Protonix 40MG Tablet PO SCH (09:26)
[2017-04-08] MEDS: Ditropan XL 5 MG PO SCH (09:26)
[2017-04-08] MEDS: ELIQUIS PO SCH ×2 (09:26→21:25)
[2017-04-08] MEDS: ECOTRIN 81 MG PO SCH (09:27)
[2017-04-08] MEDS: Zestril 5 MG PO SCH (09:27)
[2017-04-08 09:29] LABS: BASOPHIL % 0.1 % (0.0-0.4); Eosinophil % 0.1 % (0.00-5.0); Lymphocytes % 15.4 % (24.0-44.0); Mean Cell Volume 84.1 fl (78-100); Mean Corpuscular Hemoglobin 26.1 pg (26-32); Monocytes % 2.4 % (0.0-12.0); Platelet Count 535 K/mm3 (150-450); Red Cell Distribution Width 14.5 % (11.5-14.0); White Blood Count 11.5 K/mm3 (4.0-10.5)
[2017-04-08] MEDS: Levofloxacin 500MG/100ML D5W 500 MG/100 ML BAG IV SCH (09:29)
[2017-04-08] MEDS: Pepcid 20 MG PO SCH ×2 (09:34→21:25)
[2017-04-08] MEDS ORDERED: TOLTERODINE TARTRATE 2 MG PO SCH (10:00)
[2017-04-08] MEDS ORDERED: NON-FORMULARY ITEM (Omeprazole [Omeprazole] 20 MG) PO SCH (10:00)
[2017-04-08 10:41] LABS: ANION GAP 19.2 MEQ/L (5-15); Carbon Dioxide 21.6 mEq/L (21-32)
[2017-04-08] MEDS: Lidoderm Patch 5% TOP SCH ×2 (16:29→16:31)
[2017-04-09] MEDS: Sodium Chloride 0.9% 1000 ML 1,000 ML IV SCH ×6 (00:48→20:31)
[2017-04-09] MEDS: PROVENTIL 2.5 MG/3 ML NEB IH SCH ×6 (03:00→23:16)
[2017-04-09] MEDS: solu-MEDROL 125 MG IV SCH ×3 (05:17→21:27)
--- NOTE | 2017-04-09 08:47 | PCM.NOTE ---
Date and Time: 04/09/17841 Subjective Assessment: Pt continues to be short of air particularly with any activity; better at rest. [place] po well. O2 requirement less at times, at 6L O2 per NC currently. - Review of Systems Constitutional: No Symptoms Respiratory: Short Of Breath Objective Exam General Appearance: no apparent distress Neurologic Exam: alert, oriented x 3, cooperative Skin Exam: warm, dry Respiratory Exam: diminished breath sounds, No crackles/rales, No rhonchi, No wheezing Cardiovascular Exam: regular rate/rhythm, normal heart sounds, No murmur Extremity Exam: No pedal edema, No swelling Back Exam: normal inspection OBJECTIVE DATA Vital Signs: Vital Signs - 24 hr Temp Pulse Resp BP Pulse Ox 04/09/17 07:18 98.4 F 78 18 132/74 97 04/09/17 06:37 78 20 97 04/09/17 04:00 97.6 F 76 20 126/58 97 04/09/17 03:05 76 18 98 04/09/17 00:00 22 04/08/17 23:43 98.0 F 97 H 22 148/64 96 04/08/17 23:37 69 18 98 04/08/17 20:00 98.4 F 97 H 20 131/75 95 04/08/17 19:29 96 04/08/17 18:55 90 20 97 04/08/17 16:00 98.4 F 89 18 138/66 98 04/08/17 14:50 86 20 96 04/08/17 12:00 20 04/08/17 11:05 97.7 F 84 20 124/60 96 04/08/17 10:53 84 20 96 Oxygen-Last 24 hours O2 Percentage 6 Liters = 44% O2 Percentage 50% O2 Percentage 50% O2 Percentage 5 Liters = 40% O2 Percentage 5 Liters = 40% O2 Percentage 5 Liters = 40% Pain Assessment - Last Documented Pain Intensity 0 Pain Scale Used 0-10 Pain Scale Intake and Output: Intake & Output 04/06/17 04/07/17 04/08/17 04/09/17 11:59 11:59 11:59 11:59 Intake Total 2344 3601 Output Total 1200 500 Balance 1144 3101 Weight 104.372 kg Lab Results: Lab Results-Last 24 Hours 04/08/17 04/08/17 Range/Units 08:20 08:20 WBC 11.5 H (4.0-10.5) K/mm3 RBC 4.60 (4.1-5.4) M/mm3 Hgb 12.0 (12.0-16.0) gm/dl Hct 38.7 (35-47) % MCV 84.1 (78-100) fl MCH 26.1 (26-32) pg MCHC 31.0 L (32-36) g/dl RDW 14.5 H (11.5-14.0) % Plt Count 535 H (150-450) K/mm3 MPV 9.0 (6-9.5) fl Gran % 82.0 H (36.0-66.0) % Lymphocytes % 15.4 L (24.0-44.0) % Monocytes % 2.4 (0.0-12.0) % Eosinophils % 0.1 (0.00-5.0) % Basophils % 0.1 (0.0-0.4) % Basophils # 0.01 (0-0.4) Sodium 139 (136-145) mEq/L Potassium 5.0 (3.5-5.1) mEq/L Chloride 103 (98-107) mEq/L Carbon Dioxide 21.6 (21-32) mEq/L Anion Gap 19.2 H (5-15) MEQ/L BUN 18 (9-20) mg/dL Creatinine 1.16 (0.55-1.30) mg/dl Estimated GFR 49 ML/MIN Glucose 184 H (70-110) MG/DL Calcium 9.8 (8.5-10.1) mg/dL Radiology Exams: Radiology Procedures Category Date Time Status CHEST 2 VIEWS (PA AND LAT) Routine Exams 04/07/17 12:25 Completed Assessment/Plan (1) Pneumonia Current Visit: Yes Status: Acute Qualifiers: Pneumonia type: due to unspecified organism Laterality: right Lung location: middle lobe of lung Qualified Code(s): J18.1 - Lobar pneumonia, unspecified organism Assessment & Plan: On IV levaquin and steroids; nebs as well. Code(s): J18.9 - PNEUMONIA, UNSPECIFIED ORGANISM (2) Dyspnea Current Visit: Yes Status: Acute Qualifiers: Assessment & Plan: No real improvement. She has a hx of PE and has been on eliquis. She was checked for PE last week when the dyspnea started (negative);will do ABG today, if indicated will do d-dimer and possibly repeat CT chest. Code(s): R06.00 - DYSPNEA, UNSPECIFIED (3) Failure of outpatient treatment Current Visit: Yes Status: Acute Code(s): Z78.9 - OTHER SPECIFIED HEALTH STATUS (4) Hypertension Current Visit: No Status: Chronic Qualifiers: Hypertension type: essential hypertension Code(s): I10 - ESSENTIAL (PRIMARY) HYPERTENSION
[2017-04-09 08:56] LABS: A-aADO2 170; ALLEN TEST OK? YES; ARTERIAL BLD GAS O2 SATURATION 98.7 % (95-100); ARTERIAL BLOOD GAS BASE EXCESS -6.3 (-2.0-2.0); ARTERIAL BLOOD GAS FIO2 44 %; ARTERIAL BLOOD GAS PO2 104 mmHg (75-100); ARTERIAL BLOOD GAS pH 7.36 (7.35-7.45)
[2017-04-09] MEDS ORDERED: Sodium Chloride 0.9% 1000 ML 1,000 ML IV STA (08:59)
[2017-04-09 09:01] LABS: Lactic Acid 4.2 (0.4-2.0)
[2017-04-09] MEDS: Ditropan XL 5 MG PO SCH (09:03)
[2017-04-09] MEDS: ELIQUIS PO SCH ×2 (09:03→21:25)
[2017-04-09] MEDS: ECOTRIN 81 MG PO SCH (09:03)
[2017-04-09] MEDS: Protonix 40MG Tablet PO SCH (09:03)
[2017-04-09] MEDS: Zestril 5 MG PO SCH (09:03)
[2017-04-09] MEDS: Levofloxacin 500MG/100ML D5W 500 MG/100 ML BAG IV SCH (09:04)
[2017-04-09] MEDS: Lidoderm Patch 5% TOP SCH (09:04)
[2017-04-09] MEDS: Pepcid 20 MG PO SCH ×2 (09:04→21:25)
[2017-04-09] MEDS: OXYCODONE-ACETAMINOPHEN 10-325 PO PRN (09:05)
[2017-04-09 12:50] LABS: Lactic Acid 3.9 (0.4-2.0)
[2017-04-09] MEDS ORDERED: Sodium Chloride 0.9% 500 ML 500 ML IV ONE ×2 (13:08→13:11)
[2017-04-09] MEDS ORDERED: Lidoderm Patch 5% TOP SCH (14:00)
[2017-04-09] MEDS: Sodium Chloride 0.9% 500 ML 500 ML IV SCH ×2 (15:13→17:55)
[2017-04-09] MEDS ORDERED: Sodium Chloride 0.9% 500 ML 500 ML IV SCH (16:30)
[2017-04-09 16:47] LABS: Lactic Acid 3.5 (0.4-2.0)
[2017-04-09] MEDS: Zosyn 3.375GM/100 Ml D5W 3.375 GM/100 ML IVPB IV SCH (17:55)
[2017-04-10] MEDS: Sodium Chloride 0.9% 1000 ML 1,000 ML IV SCH ×2 (02:37→04:56)
[2017-04-10] MEDS: OXYCODONE-ACETAMINOPHEN 10-325 PO PRN ×2 (02:44→21:22)
[2017-04-10] MEDS: PROVENTIL 2.5 MG/3 ML NEB IH SCH ×6 (03:41→23:15)
[2017-04-10] MEDS: Zosyn 3.375GM/100 Ml D5W 3.375 GM/100 ML IVPB IV SCH ×5 (04:37→23:26)
[2017-04-10] MEDS: solu-MEDROL 125 MG IV SCH ×3 (06:18→21:09)
[2017-04-10 06:34] LABS: Lactic Acid 3.2 (0.4-2.0)
--- NOTE | 2017-04-10 08:45 | PCM.NOTE ---
Date and Time: 04/10/17841 Subjective Assessment: Pt's O2 requirement has decreased, but she still c/o SOB. Was just up to the bedside commode. - Review of Systems Constitutional: No Fever Respiratory: Short Of Breath Objective Exam General Appearance: no apparent distress, other (tachypneic) Neurologic Exam: alert, oriented x 3, cooperative Skin Exam: normal color, warm, dry Respiratory Exam: diminished breath sounds, crackles/rales (faint bibasilar crackles), No rhonchi Cardiovascular Exam: regular rate/rhythm, normal heart sounds, No murmur Extremity Exam: swelling (LE and UE with trace edema bilat) OBJECTIVE DATA Vital Signs: Vital Signs - 24 hr Temp Pulse Resp BP Pulse Ox 04/10/17 08:00 97.8 F 79 26 H 128/60 98 04/10/17 06:52 65 18 94 L 04/10/17 04:00 97.8 F 65 18 129/61 94 L 04/10/17 03:43 68 18 98 04/10/17 00:00 21 04/09/17 23:59 97.7 F 75 21 131/61 95 04/09/17 23:20 68 18 98 04/09/17 20:00 21 04/09/17 19:44 98.1 F 76 21 132/63 96 04/09/17 19:28 86 18 98 04/09/17 16:00 18 04/09/17 15:48 98.2 F 88 18 184/86 98 04/09/17 14:32 82 20 98 04/09/17 12:00 20 04/09/17 11:26 98.4 F 93 H 18 135/62 94 L 04/09/17 10:35 78 20 98 Oxygen-Last 24 hours O2 Percentage 3 Liters = 32% O2 Percentage 3 Liters = 32% O2 Percentage 3 Liters = 32% O2 Percentage 5 Liters = 40% O2 Percentage 4 Liters = 36% O2 Percentage 5 Liters = 40% Pain Assessment - Last Documented Pain Intensity 3 Pain Scale Used [facility] Intake and Output: Intake & Output 04/07/17 04/08/17 04/09/17 04/10/17 11:59 11:59 11:59 11:59 Intake Total 2344 4081 1440 Output Total 0745 944 3014 Balance 1144 3581 -660 Weight 104.372 kg 104.372 kg Lab Results: Lab Results-Last 24 Hours 04/09/17 04/09/17 04/09/17 Range/Units 08:40 08:45 08:45 D-Dimer 334 (0-500) ng/mL Puncture Site LEFT RADIAL pCO2 32 L (35-45) mmHg pO2 104 H (75-100) mmHg Base Excess -6.3 L (-2.0-2.0) O2 Saturation 96.6 (94-100) g/dF ABG pH 7.36 (7.35-7.45) ABG HCO3 18.1 L (22-28) ABG O2 Sat (Measured) 98.7 (95-100) % Jay Test YES A-a Gradient 170 a/A Ratio 0.38 Hemoglobin 13.5 Carboxyhemoglobin 1.2 (0.0-6.9) % THgb Methemoglobin 0.9 L (1.4-1.5) % Potassium 4.5 (3.5-5.1) Temperature 37.0 C POC O2 Flow Rate 44 % Lactic Acid 4.2 H (0.4-2.0) 04/09/17 04/09/17 04/10/17 Range/Units 12:40 16:40 06:20 D-Dimer (0-500) ng/mL Puncture Site pCO2 (35-45) mmHg pO2 (75-100) mmHg Base Excess (-2.0-2.0) O2 Saturation (94-100) g/dF ABG pH (7.35-7.45) ABG HCO3 (22-28) ABG O2 Sat (Measured) (95-100) % Jay Test A-a Gradient a/A Ratio Hemoglobin Carboxyhemoglobin (0.0-6.9) % THgb Methemoglobin (1.4-1.5) % Potassium (3.5-5.1) Temperature C POC O2 Flow Rate % Lactic Acid 3.9 H 3.5 H 3.2 H (0.4-2.0) Multi-Disciplinary Progress Notes: Multi-Disciplinary Progress Notes 04/09/17 16:56 Respiratory Note by Mirna Bradley LACTIC ACID RESULT CALLED TO DR. SNOW WHO IS RECYCLABLE MATERIALS COLLECTOR FOR DR. ALVAREZ. REPEAT LACTIC ORDERED IN THE MORNING PER DR. SNOW. NURSE AWARE. Initialized on 04/09/17 16:56 - END OF NOTE 04/09/17 13:05 (created 04/09/17 13:16) Respiratory Note by Mirna Bradley REPEAT LACTIC ACID RESULT CALLED TO DR. ALVAREZ. DR. ALVAREZ REQUESTED AN ADDITIONAL LACTIC ACID BE DONE AT 1700. NURSE AWARE. Initialized on 04/09/17 13:16 - END OF NOTE 04/09/17 09:00 (created 04/09/17 13:14) Respiratory Note by Mirna Bradley ABG DRAWN AND RESULTS REPORTED TO DR. ALVAREZ. DR. ALVAREZ NOTIFIED ABOUT ELEVATED LACTIC ACID THEREFORE LACTIC ACID WAS THEN ORDERED PER DR. ALVAREZ VERBAL ORDER. LACTIC ACID TO BE REPEATED AFTER IV BOLUS GIVEN. Initialized on 04/09/17 13:14 - END OF NOTE Assessment/Plan (1) Pneumonia Current Visit: Yes Status: Acute Qualifiers: Pneumonia type: due to unspecified organism Laterality: right Lung location: middle lobe of lung Qualified Code(s): J18.1 - Lobar pneumonia, unspecified organism Assessment & Plan: On IV zosyn, day #2. Code(s): J18.9 - PNEUMONIA, UNSPECIFIED ORGANISM (2) Dyspnea Current Visit: Yes Status: Acute Qualifiers: Dyspnea type: shortness of breath Qualified Code(s): R06.02 - Shortness of breath; R06.00 - Dyspnea, unspecified; R06.01 - Orthopnea Assessment & Plan: Will give IV lasix, she does have signs of fluid overload. Code(s): R06.00 - DYSPNEA, UNSPECIFIED (3) Failure of outpatient treatment Current Visit: Yes Status: Acute Code(s): Z78.9 - OTHER SPECIFIED HEALTH STATUS (4) Hypertension Current Visit: No Status: Chronic Qualifiers: Hypertension type: essential hypertension Assessment & Plan: elevated yesterday with fluid boluses; fine this morning. Code(s): I10 - ESSENTIAL (PRIMARY) HYPERTENSION
[2017-04-10] MEDS: Sodium Chloride 0.9% W/ 20 mEq KCl/LITER 1,000 ML IV SCH ×2 (09:15→17:33)
[2017-04-10] MEDS: Zestril 5 MG PO SCH (09:17)
[2017-04-10] MEDS: ECOTRIN 81 MG PO SCH (09:17)
[2017-04-10] MEDS: Protonix 40MG Tablet PO SCH (09:17)
[2017-04-10] MEDS: Pepcid 20 MG PO SCH ×2 (09:17→21:10)
[2017-04-10] MEDS: Ditropan XL 5 MG PO SCH (09:17)
[2017-04-10] MEDS: ELIQUIS PO SCH ×2 (09:17→21:10)
[2017-04-10] MEDS: Lasix 40 MG/4 ML IV SCH ×2 (09:21→21:09)
[2017-04-10] MEDS: Lidoderm Patch 5% TOP SCH (09:26)
[2017-04-10 09:29] LABS: Mean Cell Volume 85.5 fl (78-100); Mean Corpuscular Hemoglobin 26.5 pg (26-32); Mean Platelet Volume 9.1 fl (6-9.5); Platelet Count 500 K/mm3 (150-450); Red Blood Count 4.15 M/mm3 (4.1-5.4); Red Cell Distribution Width 14.4 % (11.5-14.0); White Blood Count 19.4 K/mm3 (4.0-10.5)
[2017-04-10 10:33] LABS: Platelet Estimate INCREASED (NORMAL); Total Cells Counted 100; Toxic Granulation 1+
[2017-04-10 13:03] LABS: ANION GAP 20.3 MEQ/L (5-15); Carbon Dioxide 16.3 mEq/L (21-32); Potassium 4.5 mEq/L (3.5-5.1)
[2017-04-11] MEDS: Sodium Chloride 0.9% W/ 20 mEq KCl/LITER 1,000 ML IV SCH (02:36)
[2017-04-11] MEDS: PROVENTIL 2.5 MG/3 ML NEB IH SCH ×6 (03:04→23:22)
[2017-04-11] MEDS: Zosyn 3.375GM/100 Ml D5W 3.375 GM/100 ML IVPB IV SCH (05:41)
[2017-04-11] MEDS: solu-MEDROL 125 MG IV SCH (05:42)
[2017-04-11 05:45] LABS: Mean Cell Volume 84.5 fl (78-100); Mean Platelet Volume 8.7 fl (6-9.5); Platelet Count 464 K/mm3 (150-450); Red Blood Count 4.13 M/mm3 (4.1-5.4); Red Cell Distribution Width 14.4 % (11.5-14.0); White Blood Count 14.9 K/mm3 (4.0-10.5)
[2017-04-11 06:06] LABS: Mean Corpuscular Hemoglobin 26.3 pg (26-32)
[2017-04-11 06:16] LABS: ANION GAP 16.9 MEQ/L (5-15); Carbon Dioxide 22.4 mEq/L (21-32); Potassium 4.5 mEq/L (3.5-5.1)
[2017-04-11 07:02] LABS: BAND 1 % (0.0-2.0); Total Cells Counted 100
[2017-04-11 07:03] LABS: ANISOCYTOSIS 1+
[2017-04-11 07:04] LABS: Platelet Estimate INCREASED (NORMAL)
--- NOTE | 2017-04-11 08:27 | PCM.NOTE ---
Date and Time: 04/11/17820 Subjective Assessment: patient is feeling slightly better today, down to 3L oxygen which is her home dosage. still has some cough. diuresing well Objective Exam General Appearance: no apparent distress, alert Skin Exam: normal color, warm, dry Respiratory Exam: crackles/rales, rhonchi (left greater than right), No respiratory distress Cardiovascular Exam: regular rate/rhythm, normal heart sounds Gastrointestinal/Abdomen Exam: soft Extremity Exam: normal inspection, normal range of motion OBJECTIVE DATA Vital Signs: Vital Signs - 24 hr Temp Pulse Resp BP Pulse Ox 04/11/17 08:00 20 04/11/17 07:10 97.5 F 77 20 143/63 98 04/11/17 06:42 74 18 95 04/11/17 04:00 97.7 F 77 18 128/58 95 04/11/17 03:04 77 18 95 04/11/17 00:00 20 04/10/17 23:39 97.5 F 83 20 140/65 97 04/10/17 23:16 70 18 97 04/10/17 20:00 18 04/10/17 19:22 97.3 F 76 18 141/65 96 04/10/17 19:08 75 20 96 04/10/17 16:00 97.5 F 65 20 129/66 93 L 04/10/17 14:41 75 20 97 04/10/17 12:00 98.0 F 93 H 20 137/66 96 04/10/17 10:41 72 18 96 Oxygen-Last 24 hours O2 Percentage 3 Liters = 32% O2 Percentage 3 Liters = 32% O2 Percentage 3 Liters = 32% O2 Percentage 3 Liters = 32% O2 Percentage 3 Liters = 32% Pain Assessment - Last Documented Pain Intensity 0 Pain Scale Used [facility] Intake and Output: Intake & Output 04/08/17 04/09/17 04/10/17 04/11/17 11:59 11:59 11:59 11:59 Intake Total 2344 4081 1880 4786 Output Total 7720 571 9932 4450 Balance 1144 6891 -4220 336 Weight 104.372 kg 104.372 kg Lab Results: Lab Results-Last 24 Hours 04/10/17 04/10/17 04/11/17 Range/Units 08:34 08:34 05:30 WBC 19.4 H 14.9 H (4.0-10.5) K/mm3 RBC 4.15 4.13 (4.1-5.4) M/mm3 Hgb 11.0 L 10.9 L (12.0-16.0) gm/dl Hct 35.5 34.9 L (35-47) % MCV 85.5 84.5 (78-100) fl MCH 26.5 26.3 (26-32) pg MCHC 31.0 L 31.2 L (32-36) g/dl RDW 14.4 H 14.4 H (11.5-14.0) % Plt Count 500 H 464 H (150-450) K/mm3 MPV 9.1 8.7 (6-9.5) fl Segmented Neutrophils 94 H 84 H (36.0-66.0) % Band Neutrophils 1 (0.0-2.0) % Lymphocytes (Manual) 6 L 14 L (24-44) % Monocytes (Manual) 1 (0.0-12.0) % Differential Comment NORMAL ABNORMAL Toxic Granulation 1+ Platelet Estimate INCREASED INCREASED (NORMAL) Anisocytosis 1+ Sodium 140 (136-145) mEq/L Potassium 4.5 (3.5-5.1) mEq/L Chloride 108 H (98-107) mEq/L Carbon Dioxide 16.3 L (21-32) mEq/L Anion Gap 20.3 H (5-15) MEQ/L BUN 21 H (9-20) mg/dL Creatinine 1.21 (0.55-1.30) mg/dl Estimated GFR 47 ML/MIN Glucose 241 H (70-110) MG/DL Calcium 8.9 (8.5-10.1) mg/dL Magnesium (1.8-2.4) mg/dL 04/11/17 04/11/17 Range/Units 05:30 05:30 WBC (4.0-10.5) K/mm3 RBC (4.1-5.4) M/mm3 Hgb (12.0-16.0) gm/dl Hct (35-47) % MCV (78-100) fl MCH (26-32) pg MCHC (32-36) g/dl RDW (11.5-14.0) % Plt Count (150-450) K/mm3 MPV (6-9.5) fl Segmented Neutrophils (36.0-66.0) % Band Neutrophils (0.0-2.0) % Lymphocytes (Manual) (24-44) % Monocytes (Manual) (0.0-12.0) % Differential Comment Toxic Granulation Platelet Estimate (NORMAL) Anisocytosis Sodium 138 (136-145) mEq/L Potassium 4.5 (3.5-5.1) mEq/L Chloride 103 (98-107) mEq/L Carbon Dioxide 22.4 (21-32) mEq/L Anion Gap 16.9 H (5-15) MEQ/L BUN 26 H (9-20) mg/dL Creatinine 1.41 H (0.55-1.30) mg/dl Estimated GFR 39 ML/MIN Glucose 263 H (70-110) MG/DL Calcium 8.8 (8.5-10.1) mg/dL Magnesium 2.0 (1.8-2.4) mg/dL Multi-Disciplinary Progress Notes: Multi-Disciplinary Progress Notes 04/10/17 11:00 (created 04/10/17 13:45) Case Management Note by Luz Elena Bergman DISCHARGE PLAN REVIEWED, PROVIDES SELF CARE, INDEPENDENT WITH ALL ADL'S. HAS HOME CARE ADVANTAGE FOR ALL HOME OXYGEN NEEDS. LIVES NEXT DOOR TO DAUGHTER. DECLINED ADDNL NEEDS FOR DISCHARGE. PLANNING TO RETURN HOME TO PRE EPISODIC LEVEL OF [place]. Initialized on 04/10/17 13:45 - END OF NOTE Assessment/Plan (1) Pneumonia Current Visit: Yes Status: Acute Qualifiers: Pneumonia type: due to unspecified organism Laterality: right Lung location: middle lobe of lung Qualified Code(s): J18.1 - Lobar pneumonia, unspecified organism Assessment & Plan: continue zosyn, will wean steroids. no wheezing on exam today. likely home tomorrow if continues to improve Code(s): J18.9 - PNEUMONIA, UNSPECIFIED ORGANISM (2) CHF (congestive heart failure) Current Visit: Yes Status: Acute Assessment & Plan: diuresing well, will d/c fluids Code(s): I50.9 - HEART FAILURE, UNSPECIFIED (3) COPD exacerbation Current Visit: Yes Status: Acute Assessment & Plan: wean steroids Code(s): J44.1 - CHRONIC OBSTRUCTIVE PULMONARY DISEASE W (ACUTE) EXACERBATION
[2017-04-11] MEDS: Ditropan XL 5 MG PO SCH (09:03)
[2017-04-11] MEDS: Lasix 40 MG/4 ML IV SCH ×2 (09:03→21:05)
[2017-04-11] MEDS: ELIQUIS PO SCH ×2 (09:03→21:04)
[2017-04-11] MEDS: Pepcid 20 MG PO SCH ×2 (09:04→21:04)
[2017-04-11] MEDS: Zestril 5 MG PO SCH (09:04)
[2017-04-11] MEDS: Lidoderm Patch 5% TOP SCH (09:04)
[2017-04-11] MEDS: ECOTRIN 81 MG PO SCH (09:04)
[2017-04-11] MEDS: Protonix 40MG Tablet PO SCH (09:04)
[2017-04-11] MEDS: Zosyn 2.25 GM 2.25 GM in Dextrose 5%/Water IV Soln. 100ML PLUS BAG 100 ML IV SCH ×2 (13:01→18:41)
[2017-04-11] MEDS: solu-MEDROL 40 MG IV SCH ×2 (13:01→21:08)
[2017-04-11] MEDS ORDERED: DULCOLAX 5 MG PO PRN (19:58)
[2017-04-11] MEDS: OXYCODONE-ACETAMINOPHEN 10-325 PO PRN (21:04)
[2017-04-12] MEDS: Zosyn 2.25 GM 2.25 GM in Dextrose 5%/Water IV Soln. 100ML PLUS BAG 100 ML IV SCH ×4 (00:03→18:21)
[2017-04-12] MEDS: PROVENTIL 2.5 MG/3 ML NEB IH SCH ×6 (03:19→23:06)
[2017-04-12 05:39] LABS: Mean Cell Volume 83.4 fl (78-100); Mean Corpuscular Hemoglobin 26.4 pg (26-32); Mean Platelet Volume 8.7 fl (6-9.5); Platelet Count 493 K/mm3 (150-450); Red Blood Count 4.39 M/mm3 (4.1-5.4); Red Cell Distribution Width 14.6 % (11.5-14.0); White Blood Count 13.4 K/mm3 (4.0-10.5)
[2017-04-12] MEDS: solu-MEDROL 40 MG IV SCH (06:04)
[2017-04-12 06:27] LABS: ALBUMIN 3.2 g/dL (3.4-5.0); ANION GAP 13.7 MEQ/L (5-15); BILIRUBIN,TOTAL 0.3 mg/dL (0.2-1.0); Carbon Dioxide 29.9 mEq/L (21-32); Potassium 4.7 mEq/L (3.5-5.1); Total Protein 6.8 gm/dL (6.4-8.2)
[2017-04-12 07:52] LABS: Total Cells Counted 100
[2017-04-12 07:53] LABS: Platelet Estimate NORMAL (NORMAL)
[2017-04-12] MEDS: OXYCODONE-ACETAMINOPHEN 10-325 PO PRN ×2 (08:37→22:19)
--- NOTE | 2017-04-12 09:29 | PCM.NOTE ---
Date and Time: 04/12/17926 Subjective Assessment: doing better today from a breathing perspective but c/o headache, had nosebleed yesterday. currently on 3L NC which is home dose and oxygen is humidified. Objective Exam General Appearance: no apparent distress, alert Respiratory Exam: lungs clear, crackles/rales (only in bases), No respiratory distress Cardiovascular Exam: regular rate/rhythm, normal heart sounds Gastrointestinal/Abdomen Exam: soft, No tenderness, No mass Extremity Exam: normal inspection, normal range of motion OBJECTIVE DATA Vital Signs: Vital Signs - 24 hr Temp Pulse Resp BP Pulse Ox 04/12/17 07:46 98.0 F 78 16 116/63 92 L 04/12/17 07:45 98.0 F 78 16 116/63 92 L 04/12/17 07:00 71 18 97 04/12/17 03:57 97.7 F 67 18 121/62 97 04/12/17 03:19 67 18 97 04/12/17 00:00 98.2 F 88 18 94 L 04/11/17 23:22 91 H 18 94 L 04/11/17 20:00 18 04/11/17 19:30 97.9 F 81 18 125/60 96 04/11/17 18:35 81 18 96 04/11/17 16:00 97.8 F 83 18 123/55 94 L 04/11/17 15:00 83 18 94 L 04/11/17 12:00 20 04/11/17 11:47 97.8 F 84 20 123/55 94 L 04/11/17 10:26 80 20 97 Oxygen-Last 24 hours O2 Percentage 3 Liters = 32% O2 Percentage 3 Liters = 32% O2 Percentage 3 Liters = 32% Pain Assessment - Last Documented Pain Intensity 8 Pain Scale Used 0-10 Pain Scale Intake and Output: Intake & Output 04/09/17 04/10/17 04/11/17 04/12/17 11:59 11:59 11:59 11:59 Intake Total 4081 1880 5146 938 Output Total 500 6100 4450 4000 Balance 5571 4220 696 -3062 Weight 104.372 kg Lab Results: Lab Results-Last 24 Hours 04/12/17 04/12/17 Range/Units 05:15 05:15 WBC 13.4 H (4.0-10.5) K/mm3 RBC 4.39 (4.1-5.4) M/mm3 Hgb 11.6 L (12.0-16.0) gm/dl Hct 36.6 (35-47) % MCV 83.4 (78-100) fl MCH 26.4 (26-32) pg MCHC 31.7 L (32-36) g/dl RDW 14.6 H (11.5-14.0) % Plt Count 493 H (150-450) K/mm3 MPV 8.7 (6-9.5) fl Segmented Neutrophils 76 H (36.0-66.0) % Lymphocytes (Manual) 18 L (24-44) % Monocytes (Manual) 6 (0.0-12.0) % Differential Comment NORMAL Platelet Estimate NORMAL (NORMAL) Sodium 138 (136-145) mEq/L Potassium 4.7 (3.5-5.1) mEq/L Chloride 99 (98-107) mEq/L Carbon Dioxide 29.9 (21-32) mEq/L Anion Gap 13.7 (5-15) MEQ/L BUN 37 H (9-20) mg/dL Creatinine 1.55 H (0.55-1.30) mg/dl Estimated GFR 35 ML/MIN Glucose 223 H (70-110) MG/DL Calcium 9.2 (8.5-10.1) mg/dL Total Bilirubin 0.30 (0.2-1.0) mg/dL AST 48 H (15-37) U/L ALT 107 H (12-78) U/L Alkaline Phosphatase 62 (46-116) U/L Serum Total Protein 6.8 (6.4-8.2) gm/dL Albumin 3.2 L (3.4-5.0) g/dL Radiology Exams: Radiology Procedures Category Date Time Status CHEST 2 VIEWS (PA AND LAT) Routine Exams 04/12/17 Ordered Multi-Disciplinary Progress Notes: Multi-Disciplinary Progress Notes 04/12/17 08:43 Respiratory Note by Georgia Locke 0730 ROOM AIR SPO2 92%. Initialized on 04/12/17 08:43 - END OF NOTE Assessment/Plan (1) Pneumonia Current Visit: Yes Status: Acute Qualifiers: Pneumonia type: due to unspecified organism Laterality: right Lung location: middle lobe of lung Qualified Code(s): J18.1 - Lobar pneumonia, unspecified organism Assessment & Plan: continue zosyn, clinically improved. will repeat chest xray today. likely home tomorrow if continues to improve, still very weak today. Code(s): J18.9 - PNEUMONIA, UNSPECIFIED ORGANISM (2) CHF (congestive heart failure) Current Visit: Yes Status: Acute Assessment & Plan: cr slightly increased, appears euvolemic, will stop lasix and check chest xray today. Code(s): I50.9 - HEART FAILURE, UNSPECIFIED (3) COPD exacerbation Current Visit: Yes Status: Acute Assessment & Plan: no wheezing on exam, steroids were decreased yesterday, will change to po prednisone today. Code(s): J44.1 - CHRONIC OBSTRUCTIVE PULMONARY DISEASE W (ACUTE) EXACERBATION
[2017-04-12] MEDS: Lidoderm Patch 5% TOP SCH (10:10)
[2017-04-12] MEDS: Pepcid 20 MG PO SCH ×2 (10:11→22:15)
[2017-04-12] MEDS: Zestril 5 MG PO SCH (10:11)
[2017-04-12] MEDS: Ditropan XL 5 MG PO SCH (10:11)
[2017-04-12] MEDS: DELTASONE 20 MG PO SCH (10:11)
[2017-04-12] MEDS: ECOTRIN 81 MG PO SCH (10:11)
[2017-04-12] MEDS: ELIQUIS PO SCH ×2 (10:11→22:15)
[2017-04-12] MEDS: Protonix 40MG Tablet PO SCH (10:11)
[2017-04-12] MEDS: DULCOLAX 5 MG PO PRN (13:16)
--- NOTE | 2017-04-12 21:13 | XRAY ---
Indication: Cough. Comparison: April 07, 2017. PA/lateral chest demonstrates near-complete clearing of the previous right mid lung and lingular infiltrates/atelectasis with little residual present. Heart is not enlarged. No new cardiopulmonary abnormalities. Comment: Preliminary interpretation was made by [facility]. No discrepancy.
[2017-04-13] MEDS: Zosyn 2.25 GM 2.25 GM in Dextrose 5%/Water IV Soln. 100ML PLUS BAG 100 ML IV SCH ×2 (00:54→06:27)
[2017-04-13] MEDS: PROVENTIL 2.5 MG/3 ML NEB IH SCH ×3 (03:13→09:26)
[2017-04-13 05:46] LABS: Mean Cell Volume 84.6 fl (78-100); Mean Corpuscular Hemoglobin 26.2 pg (26-32); Mean Platelet Volume 8.6 fl (6-9.5); Platelet Count 481 K/mm3 (150-450); Red Blood Count 4.23 M/mm3 (4.1-5.4); Red Cell Distribution Width 14.7 % (11.5-14.0); White Blood Count 12.4 K/mm3 (4.0-10.5)
[2017-04-13 06:22] LABS: ANION GAP 10.8 MEQ/L (5-15); Carbon Dioxide 29.9 mEq/L (21-32); Potassium 4.5 mEq/L (3.5-5.1)
[2017-04-13] MEDS: DULCOLAX 5 MG PO PRN (07:33)
[2017-04-13 07:36] VITALS: BP 115/57
[2017-04-13] MEDS ORDERED: CITROMA 296 ML PO ONE (07:41)
--- NOTE | 2017-04-13 07:48 | PCM.DS ---
Discharge Summary Date of Admission: 04/07/17 11:47 Admitting Physician: ARMANI ALVAREZ Primary Care Provider: ARMANI ALVAREZ Allergies Allergies Sulfa (Sulfonamide Antibiotics) Allergy (Verified 04/07/17 15:07) Hospital Summary - Hospital Course Hospital Course: patient was admitted with pneumonia, developed some chf as well. she is breathing well at this time, back to 3L nasal cannula which is her home dosage. she is tolerating exertion better now. wbc improved as well - Vitals & Intake/Output Vital Signs: Vital Signs Temperature 97.6 F 04/13/17 07:35 Pulse Rate 67 04/13/17 07:35 Respiratory Rate 18 04/13/17 07:35 Blood Pressure 115/57 04/13/17 07:35 O2 Sat by Pulse Oximetry 98 04/13/17 07:35 Oxygen-Last Documented O2 Percentage 2 Liters = 28% Intake & Output: Intake & Output 04/10/17 04/11/17 04/12/17 04/13/17 11:59 11:59 11:59 11:59 Intake Total 1880 5146 938 1120 Output Total 6100 4450 4000 2300 Balance -4220 696 -3062 -1180 Weight 104.372 kg - Lab Result Diagrams: 04/13/17 05:26 04/13/17 05:26 Lab Results-Last 24 Hrs: Lab Results-Last 24 Hours 04/12/17 04/13/17 04/13/17 Range/Units 05:15 05:26 05:26 WBC 12.4 H (4.0-10.5) K/mm3 RBC 4.23 (4.1-5.4) M/mm3 Hgb 11.1 L (12.0-16.0) gm/dl Hct 35.8 (35-47) % MCV 84.6 (78-100) fl MCH 26.2 (26-32) pg MCHC 31.0 L (32-36) g/dl RDW 14.7 H (11.5-14.0) % Plt Count 481 H (150-450) K/mm3 MPV 8.6 (6-9.5) fl Segmented Neutrophils 76 H (36.0-66.0) % Lymphocytes (Manual) 18 L (24-44) % Monocytes (Manual) 6 (0.0-12.0) % Differential Comment NORMAL Platelet Estimate NORMAL (NORMAL) Sodium 137 (136-145) mEq/L Potassium 4.5 (3.5-5.1) mEq/L Chloride 101 (98-107) mEq/L Carbon Dioxide 29.9 (21-32) mEq/L Anion Gap 10.8 (5-15) MEQ/L BUN 40 H (9-20) mg/dL Creatinine 1.28 (0.55-1.30) mg/dl Estimated GFR 44 ML/MIN Glucose 162 H (70-110) MG/DL Calcium 9.0 (8.5-10.1) mg/dL Micro Results-Entire Visit: Microbiology 04/07/17 16:30 Urine Culture - Final Urine, Void MIXED ACRLY; 3 OR MORE TYPES. NO PREDOMINANT ORGANISM. NO FURTHER WORKUP. PLEASE RESUBMIT IF CLINICALLY INDICATED. - Radiology Exams Ordered Rad Exams-Entire Visit: Radiology Procedures Category Date Time Status CHEST 2 VIEWS (PA AND LAT) Routine Exams 04/12/17 Completed - Procedures and Test Procedures and Tests throughout Hospitalization: Therapy Orders & Screens 04/07/17 12:10 Oxygen NASAL CANNULA 2 lpm Comment: to keep sats >90% Diagnosis: pne,sob 04/07/17 12:15 Respiratory Nebulizer 1500,1900,2300,0300,0700,1100 Comment: to keep sats >90% Diagnosis: pne,sob Name of medication?: albuterol 04/08/17 19:02 Oxygen NASAL CANNULA 6 lpm Comment: Diagnosis: Pneumonia,SOB,failed outpatient Discharge Exam General Appearance: no apparent distress, alert Respiratory Exam: lungs clear Cardiovascular Exam: regular rate/rhythm, normal heart sounds Gastrointestinal/Abdomen Exam: soft, No tenderness, No mass Extremity Exam: normal inspection, normal range of motion Final Diagnosis/Problem List - Final Discharge Diagnosis/Problem (1) Pneumonia Current Visit: Yes Status: Acute Assessment & Plan: home on po levaquin (2) CHF (congestive heart failure) Current Visit: Yes Status: Acute (3) COPD exacerbation Current Visit: Yes Status: Acute - Discharge Disposition: Home, Self-Care Condition: Stable Prescriptions: New Albuterol Sulfate [Albuterol Sulfate Hfa] 2 puffs IH Q4-6HPRN PRN #1 [id number] PRN Reason: Shortness Of Breath Levofloxacin [Levaquin] 500 mg PO DAILY #7 tablet Continue Aspirin [Aspirin EC] 81 mg PO DAILY Multivitamin with Minerals [Hair, Skin and Nails] 500 mcg PO DAILY Baicalin/Catechin/Citrated Znc [[id number] Capsule] 500 mg PO BID Tolterodine Tartrate [Detrol LA] 2 mg PO DAILY Omeprazole 20 mg PO DAILY Ranitidine HCl 150 mg PO BID Apixaban [Eliquis] 5 mg PO BID Lisinopril 10 mg [Zestril 10 MG] 5 mg PO DAILY Hydrocodone Bit/Acetaminophen [Hydrocodon-Acetaminoph 7.5-325] 1 each PO DAILY PRN PRN PRN Reason: Pain Follow up with: ARMANI ALVAREZ [Primary Care Provider] - 1 Week Forms: Patient Portal Information
[2017-04-13 08:50] LABS: Total Cells Counted 100
[2017-04-13 08:52] LABS: Platelet Estimate NORMAL (NORMAL)
[2017-04-13] MEDS: Protonix 40MG Tablet PO SCH (09:00)
[2017-04-13] MEDS: Pepcid 20 MG PO SCH (09:00)
[2017-04-13] MEDS: ELIQUIS PO SCH (09:00)
[2017-04-13] MEDS: Lidoderm Patch 5% TOP SCH (09:00)
[2017-04-13] MEDS: Ditropan XL 5 MG PO SCH (09:00)
[2017-04-13] MEDS: ECOTRIN 81 MG PO SCH (09:00)
[2017-04-13] MEDS: Zestril 5 MG PO SCH (09:00)
[2017-04-13] MEDS: OXYCODONE-ACETAMINOPHEN 10-325 PO PRN (09:11)
[2017-04-13 09:29] VITALS: PULSE 76; O2SAT 96
[2017-04-13] MEDS: DELTASONE 20 MG PO SCH (12:10)
== END 2017-04-13 12:45 | disposition home or self-care (01) | DRG 194 ==
LOC: MED SURG 11:47
PROVIDERS: ADMIT Family Medicine; ATTEND Family Medicine
DX: J18.1 Lobar pneumonia, unspecified organism (principal); J44.1 Chronic obstructive pulmonary disease with (acute) exacerbation; I50.9 Heart failure, unspecified; Z78.9 Other specified health status; I10 Essential (primary) hypertension; Z79.899 Other long term (current) drug therapy
CPT/HCPCS: 36415; 36600; 71020; 80048; 80053; 81000; 82375; 82803; 82962; 83605; 83735; 83880; 85025; 85379; 87086; 94640; 94760; J0696; J1940; J1956; J2543; J2920; J2930; A9270-GY; J7506

== ENCOUNTER 2017-09-12 11:40 | Emergency (ER) | payer MEDICARE ==
--- NOTE | 2017-09-12 12:22 | ERPHSYRPT ---
- History of Present Illness Time Seen by Provider: 09/12/17 11:58 Source: patient Patient Subjective Stated Complaint: PT REPORTS SHE HAS A DENTAL ABCESS STATES SHE DOES NOT HAVE A DENTIST ET CAN NOT GO TO ONE BECAUSE HER MD DOES NOT WANT HER TO-STATES THAT SHE WAS PLACED ON [id number] IT IS NOT HELPING ET PAIN HAS NOT CHANGED Triage Nursing Assessment: PT PINK WARM ET [id number] OBVIOUS DEFORMITY NOTED- DENTAL CARRIES NOTED Physician History: CC: toothpain Hx: 67 y/o patient of Dr Hightower. She has chronic broken teeth that are worse. She has mouth pain. Some swelling of he the face. No unusual trouble breathing or swallowing. She was seen this week for bronchitis and started doxycycline. She is using some old norco. She has worsened pain. She is on eliquis for pulmonary embolus. She can not come off the blood thinners yet due to prior PE. She sees Dr Mejía hematology. She has not seen a dentist. Allergies/Adverse Reactions: Sulfa (Sulfonamide Antibiotics) Allergy (Verified 09/12/17 11:54) Home Medications: Aspirin [Aspirin EC] 81 mg PO DAILY 11/06/16 [History] Apixaban [Eliquis] 5 mg PO BID 03/31/17 [History] Baicalin/Catechin/Citrated Znc [[id number] Capsule] 500 mg PO BID 03/31/17 [ History] Hydrocodone Bit/Acetaminophen [Hydrocodon-Acetaminoph 7.5-325] 1 each PO DAILY PRN PRN 03/31/17 [History] Lisinopril 10 mg [Zestril 10 MG] 5 mg PO DAILY 03/31/17 [History] Multivitamin with Minerals [Hair, Skin and Nails] 500 mcg PO DAILY 03/31/17 [ History] Omeprazole 20 mg PO DAILY 03/31/17 [History] Ranitidine HCl 150 mg PO BID 03/31/17 [History] Tolterodine Tartrate [Detrol LA] 2 mg PO DAILY 03/31/17 [History] Hx Tetanus, Diphtheria Vaccination/Date Given: No Hx Influenza Vaccination/Date Given: Yes Hx Pneumococcal Vaccination/Date Given: Yes Immunizations Up to Date: Yes - Review of Systems Constitutional: No Fever, No Chills Ears, Nose, & Throat: Mouth Pain (broken teeth) Respiratory: No Dyspnea Abdominal/Gastrointestinal: No Vomiting - Past Medical History Pertinent Past Medical History: Yes Neurological History: Seizures, Stroke ENT History: No Pertinent History Cardiac History: Hypertension Respiratory History: Pneumonia, Pulmonary Embolism Endocrine Medical History: No Pertinent History Musculoskeletal History: Arthritis, Osteoarthritis GI Medical History: No Pertinent History History: No Pertinent History Psycho-Social History: Anxiety, Depression Female Reproductive Disorders: No Pertinent History Other Medical History: admitted recently with shortness of breath - Past Surgical History Past Surgical History: Yes Neuro Surgical History: No Pertinent History Cardiac: No Pertinent History Respiratory: No Pertinent History Gastrointestinal: No Pertinent History Genitourinary: No Pertinent History Musculoskeletal: Other Female Surgical History: Tubal Ligation Other Surgical History: left rotator cuff surgery, cyst r arm removed - Social History Smoking Status: Never smoker Exposure to second hand smoke: No Drug Use: none Patient Lives Alone: No - Female History Hx Now: No - Nursing Vital Signs Nursing Vital Signs: Initial Vital Signs Temperature 97.9 F 09/12/17 11:47 Pulse Rate 115 H 09/12/17 11:47 Respiratory Rate 24 09/12/17 11:47 Blood Pressure 130/69 09/12/17 11:47 O2 Sat by Pulse Oximetry 98 09/12/17 11:47 Pain Scale Pain Intensity 9 - Physical Exam General Appearance: alert, other (pleasant lady) Eye Exam: PERRL/EOMI Ears, Nose, Throat Exam: moist mucous membranes, other (most of her teeth are broken. No trismus. Normal breathing/airway. She is on chronic home oxygen 3L. ) Neck Exam: normal inspection, non-tender, supple Respiratory Exam: normal breath sounds Cardiovascular Exam: regular rate/rhythm Gastrointestinal/Abdomen Exam: soft, No tenderness, No distention Extremity Exam: normal inspection, normal range of motion Neurologic Exam: alert, oriented x 3, cooperative, sensation nml, No motor deficits Skin Exam: warm, dry, No rash SpO2 Interpretation: normal SpO2: 98 Oxygen Delivery: Room Air - Course Nursing assessment & vital signs reviewed: Yes - Progress Progress Note: 09/12/17 12:20 Will add amoxil. Refill norco. Advised she see dentist and oral surgeon to communicate with Dr Mejía regarding a plan for her teeth. No sign of ludwigs angina. ?Neck soft tissues soft. No fever. Counseled pt/family regarding: diagnosis, need for follow-up - Departure Time of Disposition: 12:22 Departure Disposition: Home Clinical Impression: Broken teeth, Dentalgia Condition: Stable Critical Care Time: No Referrals: ARMANI HIGHTOWER [Primary Care Provider] - Instructions: Tooth Decay, Adult (DC) Additional Instructions: You need to see a dentist or oral surgeon as soon as possible. Rx amoxil on top of doxycycline. Rx norco. Return for difficulty breathing or worsening. Prescriptions: Amoxicillin [Amoxil] 1 cap PO TID #30 capsule Hydrocodone Bit/Acetaminophen [Hinkley 5-325 Tablet] 1 each PO Q4-6HPRN PRN #20 tablet MDD 4 PRN Reason: Pain
[2017-09-12 12:59] VITALS: BP 134/66; PULSE 110; O2SAT 99
== END 2017-09-12 12:58 | disposition home or self-care (01) ==
LOC: ED 11:40
DX: S02.5XXA Fracture of tooth (traumatic), initial encounter for closed fracture (principal); K08.89 Other specified disorders of teeth and supporting structures
CPT/HCPCS: 99283

== ENCOUNTER 2019-02-10 13:38 | Inpatient (IN) | payer MEDICARE ==
[2019-02-10 14:22] LABS: BASOPHIL % 0.1 % (0.0-0.4); Basophil (Absolute #) 0.01 (0-0.4); Granulocyte Absolute (ANC) 5.72 (1.4-6.9); Granulocytes % 59.7 % (36.0-66.0); Hematocrit 39.8 % (35-47); Hemoglobin 12.8 gm/dl (12.0-16.0); Lymphocytes % 30.3 % (24.0-44.0); Mean Cell Volume 86.1 fl (78-100); Mean Corpuscular Hemoglobin 27.7 pg (26-32); Mean Corpuscular Hgb Concent. 32.2 g/dl (32-36); Mean Platelet Volume 9.1 fl (6-9.5); Monocytes % 8.9 % (0.0-12.0); Platelet Count 345 K/mm3 (150-450); Red Blood Count 4.62 M/mm3 (4.1-5.4); Red Cell Distribution Width 14.4 % (11.5-14.0); White Blood Count 9.6 K/mm3 (4.0-10.5)
[2019-02-10 14:29] LABS: Appearance CLEAR (CLEAR); Bacteria RARE /HPF (NEGATIVE); Bilirubin NEGATIVE (NEGATIVE); Blood NEGATIVE Ery/ul (0-5); Glucose NEGATIVE (NEGATIVE); Ketones NEGATIVE (NEGATIVE); Leukocyte Esterase TRACE (NEGATIVE); Mucus SLIGHT /HPF (NEGATIVE); Nitrite NEGATIVE (NEGATIVE); Protein,Urine Dip NEGATIVE (Negative); Urobilinogen 2 mg/dL (0-1)
[2019-02-10] MEDS ORDERED: Sodium Chloride 0.9% 10 ML FLUSH Syringe IV PRN (14:30)
[2019-02-10 14:36] LABS: ALBUMIN 4.3 g/dL (3.5-5.0); ALKALINE PHOSPHATASE 74 U/L (38-126); BLOOD UREA NITROGEN 20 mg/dL (7-17); CHLORIDE 105 mmol/L (98-107); Calcium 9.8 mg/dL (8.4-10.2); Carbon Dioxide 24 mmol/L (22-30); Creatinine 1 0.93 mg/dL (0.52-1.04); Glucose 128 mg/dL (74-106); Potassium 4.4 mmol/L (3.5-5.1); SGOT/AST 21 U/L (14-36); SGPT/ALT 18 U/L (0-35); SODIUM 140 mmol/L (137-145); Total Protein 7.8 g/dL (6.3-8.2)
[2019-02-10] MEDS: ROCEPHIN 1 Gm-D5w 50 ml Bag** 1 G/50 ML IVPB IV SCH (15:57)
[2019-02-10] MEDS ORDERED: NORCO 5/325 MG PO PRN (18:53)
[2019-02-10] MEDS: Pepcid 20 MG PO SCH (21:36)
[2019-02-10] MEDS: ELIQUIS 2.5 MG TABLET PO SCH (21:36)
[2019-02-10] MEDS: NEURONTIN 300 MG PO SCH (21:36)
[2019-02-10] MEDS: Ditropan XL 5 MG PO SCH (21:36)
[2019-02-10] MEDS: Cymbalta 30 MG Capsule PO SCH (21:36)
[2019-02-10] MEDS: Sodium Chloride 0.9% 10 ML FLUSH Syringe IV SCH (21:37)
[2019-02-11] MEDS: Sodium Chloride 0.9% 10 ML FLUSH Syringe IV SCH ×3 (06:06→22:38)
--- NOTE | 2019-02-11 08:54 | PCM.HP.ADD ---
Addendum to History & Physical - History & Physical Addendum Addendum to History & Physical: This certifies that the History & Physical in the electronic chart reflects the current health status of the patient. If there are changes in the H&P these changes/exceptions are listed as follows.
[2019-02-11] MEDS ORDERED: Sodium Chloride 0.9% 1000 ML 1,000 ML IV SCH (09:00)
--- NOTE | 2019-02-11 09:06 | PCM.NOTE ---
Date and Time: 02/11/19 0854 Subjective Assessment: Pt had some nausea but no vomiting. Was actually "starving" this morning and ate breakfast well. One of her lesions on the L forearm is still quite painful; the other one is feeling better. - Review of Systems Constitutional: No Fever Abdominal/Gastrointestinal: Nausea Objective Exam General Appearance: no apparent distress, alert, obese Neurologic Exam: oriented x 3, cooperative Skin Exam: other (R forearm with 2 linear lesions with black eschar. Decreased erythema of proximal lesion; persistent mild erythema of distal lesion) Neck Exam: normal inspection, non-tender, No lymphadenopathy Respiratory Exam: normal breath sounds, lungs clear, No crackles/rales, No rhonchi, No wheezing Cardiovascular Exam: regular rate/rhythm, normal heart sounds, No murmur Extremity Exam: swelling (trace LE edema bilat) OBJECTIVE DATA Vital Signs: Vital Signs - 24 hr Temp Pulse Resp BP Pulse Ox 02/11/19 07:27 97.6 F 76 20 119/58 97 02/11/19 06:59 94 L 02/11/19 04:00 98.5 F 71 18 100/53 96 02/11/19 00:00 98.3 F 75 19 116/57 95 02/10/19 20:45 94 L 02/10/19 20:00 98.5 F 83 18 121/73 96 02/10/19 14:42 99.1 F 95 H 21 135/71 95 02/10/19 14:15 95 Pain Assessment - Last Documented Pain Intensity 0 Pain Scale Used 0-10 Pain Scale Intake and Output: Intake & Output 02/08/19 02/09/19 02/10/19 02/11/19 11:59 11:59 11:59 11:59 Intake Total 1690 Output Total 460 Balance 1230 Weight 113.1 kg Lab Results: Lab Results-Last 24 Hours 02/10/19 02/10/19 02/10/19 Range/Units 14:00 14:10 14:10 WBC 9.6 (4.0-10.5) K/mm3 RBC 4.62 (4.1-5.4) M/mm3 Hgb 12.8 (12.0-16.0) gm/dl Hct 39.8 (35-47) % MCV 86.1 (78-100) fl MCH 27.7 (26-32) pg MCHC 32.2 (32-36) g/dl RDW 14.4 H (11.5-14.0) % Plt Count 345 (150-450) K/mm3 MPV 9.1 (6-9.5) fl Gran % 59.7 (36.0-66.0) % Eos # (Auto) 0.10 (0-0.5) Absolute Lymphs (auto) 2.90 (1.0-4.6) Absolute Monos (auto) 0.85 (0.0-1.3) Lymphocytes % 30.3 (24.0-44.0) % Monocytes % 8.9 (0.0-12.0) % Eosinophils % 1.0 (0.00-5.0) % Basophils % 0.1 (0.0-0.4) % Absolute Granulocytes 5.72 (1.4-6.9) Basophils # 0.01 (0-0.4) Sodium 140 (137-145) mmol/L Potassium 4.4 (3.5-5.1) mmol/L Chloride 105 (98-107) mmol/L Carbon Dioxide 24 (22-30) mmol/L Anion Gap 15.0 (5-15) MEQ/L BUN 20 H (7-17) mg/dL Creatinine 0.93 (0.52-1.04) mg/dL Estimated GFR > 60.0 ML/MIN Glucose 128 H (74-106) mg/dL Lactic Acid (0.4-2.0) Calcium 9.8 (8.4-10.2) mg/dL Total Bilirubin 0.70 (0.2-1.3) mg/dL AST 21 (14-36) U/L ALT 18 (0-35) U/L Alkaline Phosphatase 74 (38-126) U/L Serum Total Protein 7.8 (6.3-8.2) g/dL Albumin 4.3 (3.5-5.0) g/dL Urine Color YELLOW (YELLOW) Urine Appearance CLEAR (CLEAR) Urine pH 6.0 (5-6) Ur Specific [place] 1.020 (1.005-1.025) Urine Protein NEGATIVE (Negative) Urine Ketones NEGATIVE (NEGATIVE) Urine Blood NEGATIVE (0-5) Mariusz/ul Urine Nitrite NEGATIVE (NEGATIVE) Urine Bilirubin NEGATIVE (NEGATIVE) Urine Urobilinogen 2 (0-1) mg/dL Ur Leukocyte Esterase TRACE (NEGATIVE) Urine WBC (Auto) 6-10 (0-5) /HPF Urine RBC (Auto) NONE (0-2) /HPF U Epithel Cells (Auto) NONE (FEW) /HPF Urine Bacteria (Auto) RARE (NEGATIVE) /HPF Urine Mucus (Auto) SLIGHT (NEGATIVE) /HPF Urine Culture Reflexed YES (NO) Urine Glucose NEGATIVE (NEGATIVE) mg/dL 02/10/19 Range/Units 14:12 WBC (4.0-10.5) K/mm3 RBC (4.1-5.4) M/mm3 Hgb (12.0-16.0) gm/dl Hct (35-47) % MCV (78-100) fl MCH (26-32) pg MCHC (32-36) g/dl RDW (11.5-14.0) % Plt Count (150-450) K/mm3 MPV (6-9.5) fl Gran % (36.0-66.0) % Eos # (Auto) (0-0.5) Absolute Lymphs (auto) (1.0-4.6) Absolute Monos (auto) (0.0-1.3) Lymphocytes % (24.0-44.0) % Monocytes % (0.0-12.0) % Eosinophils % (0.00-5.0) % Basophils % (0.0-0.4) % Absolute Granulocytes (1.4-6.9) Basophils # (0-0.4) Sodium (137-145) mmol/L Potassium (3.5-5.1) mmol/L Chloride (98-107) mmol/L Carbon Dioxide (22-30) mmol/L Anion Gap (5-15) MEQ/L BUN (7-17) mg/dL Creatinine (0.52-1.04) mg/dL Estimated GFR ML/MIN Glucose (74-106) mg/dL Lactic Acid 1.3 (0.4-2.0) Calcium (8.4-10.2) mg/dL Total Bilirubin (0.2-1.3) mg/dL AST (14-36) U/L ALT (0-35) U/L Alkaline Phosphatase (38-126) U/L Serum Total Protein (6.3-8.2) g/dL Albumin (3.5-5.0) g/dL Urine Color (YELLOW) Urine Appearance (CLEAR) Urine pH (5-6) Ur Specific [place] (1.005-1.025) Urine Protein (Negative) Urine Ketones (NEGATIVE) Urine Blood (0-5) Mariusz/ul Urine Nitrite (NEGATIVE) Urine Bilirubin (NEGATIVE) Urine Urobilinogen (0-1) mg/dL Ur Leukocyte Esterase (NEGATIVE) Urine WBC (Auto) (0-5) /HPF Urine RBC (Auto) (0-2) /HPF U Epithel Cells (Auto) (FEW) /HPF Urine Bacteria (Auto) (NEGATIVE) /HPF Urine Mucus (Auto) (NEGATIVE) /HPF Urine Culture Reflexed (NO) Urine Glucose (NEGATIVE) mg/dL Assessment/Plan (1) Cellulitis Current Visit: Yes Status: Acute Qualifiers: Site of cellulitis: extremity Site of cellulitis of extremity: upper extremity Laterality: unspecified laterality Qualified Code(s): L03.119 - Cellulitis of unspecified part of limb Assessment & Plan: On IV rocephin with some improvement. PT to do wound care,thank you. Would like her to stay at least 1 more day for more antibiotics. Code(s): L03.90 - CELLULITIS, UNSPECIFIED (2) UTI (urinary tract infection) Current Visit: Yes Status: Acute Qualifiers: Urinary tract infection type: acute cystitis Hematuria presence: without hematuria Qualified Code(s): N30.00 - Acute cystitis without hematuria Assessment & Plan: She will get her 3rd dose of IV rocephin tomorrow. Code(s): N39.0 - URINARY TRACT INFECTION, SITE NOT SPECIFIED (3) Frequent falls Current Visit: Yes Status: Acute Assessment & Plan: Appreciate teleneurology consult. Will order CTA head and neck per their suggestion. Was to start PT for deconditioning today. Code(s): R29.6 - REPEATED FALLS (4) CHF (congestive heart failure) Current Visit: No Status: Acute Qualifiers: Heart failure chronicity: chronic Assessment & Plan: Will gently hydrate prior to and after the CTA head/neck. Code(s): I50.9 - HEART FAILURE, UNSPECIFIED (5) Hypertension Current Visit: No Status: Chronic Qualifiers: Hypertension type: essential hypertension Assessment & Plan: well controlled. Code(s): I10 - ESSENTIAL (PRIMARY) HYPERTENSION (6) Nausea Current Visit: Yes Status: Resolved Code(s): R11.0 - NAUSEA
[2019-02-11] MEDS: NEURONTIN 300 MG PO SCH ×2 (10:59→22:37)
[2019-02-11] MEDS: ELIQUIS 2.5 MG TABLET PO SCH ×2 (10:59→22:37)
[2019-02-11] MEDS: Pepcid 20 MG PO SCH ×2 (10:59→22:37)
[2019-02-11] MEDS: ROCEPHIN 1 Gm-D5w 50 ml Bag** 1 G/50 ML IVPB IV SCH (10:59)
--- NOTE | 2019-02-11 15:01 | XRAY ---
Indication: Dizziness. Conventional contrast enhanced CTA carotid arteries performed using 125 cc Isovue 370 contrast. Two-dimensional sagittal and coronal reformatted images obtained. Additional 3-dimensional reformatted images obtained using a separate workstation. Comparison: None Visualized aortic arch is normal in course and caliber with minimal calcifications. Anatomic variant for bovine arch with common origin of the brachiocephalic and left common carotid arteries. Origin of these arteries and left subclavian artery are widely patent. Examination of the right carotid circulation demonstrates common carotid artery normal course and caliber without critical stenosis or obstruction. Minimal eccentric calcified plaquing at the level of the bulb. Remaining visualized internal and external carotid arteries are normal in CTA appearance. Examination of the left carotid circulation demonstrates widely patent common carotid artery, bulb, internal carotid, and external carotid arteries. Examination of the posterior circulation demonstrates vertebral arteries bilaterally symmetric and patent. CTA [place] of [place] reported separately. Jugular veins are unremarkable. Scattered centimeter/subcentimeter cervical and submandibular lymph nodes, none pathologically enlarged. Parotid and submandibular glands are bilaterally symmetric. There are no enhances homogeneously. Supra-and infraglottic airway are widely patent. Visualized mediastinum and lungs are unremarkable. Osseous structures including cervical spine intact. Incidental mild C4-C5 degenerative endplate spurring with disc space narrowing. Impression: 1. Anatomic variant for bovine arch. 2. Minimal right carotid bulb calcified plaquing without critical stenosis/obstruction. 3. Remaining CTA carotid and vertebral arteries is negative. 4. Incidental C4-C5 degenerative changes. CT DI 23.26
--- NOTE | 2019-02-11 15:12 | XRAY ---
Indication: Dizziness. Conventional contrast enhanced CTA head performed using 125 cc Isovue 370 contrast. Two-dimensional sagittal and coronal reformatted images obtained. Additional 3-dimensional reformatted images obtained using a separate workstation. Comparison: None Distal parasellar internal carotid arteries demonstrates very minimal calcified plaquing bilaterally without critical stenosis, obstruction, or AV malformation. Normal carotid terminus with normal branching anterior and middle cerebral arteries bilaterally. More distal anterior and middle cerebral arteries are normal in CTA appearance. Anterior communicating and posterior communicating arteries not seen. Examination of the posterior circulation demonstrates basilar artery normal in course and caliber. Normal branching left anterior inferior cerebellar artery. The superior cerebellar and right anterior inferior cerebellar arteries not seen. Normal basilar tip with normal CTA appearance of both posterior cerebral arteries. Venous drainage including the superior/inferior sagittal, straight, and transverse sinuses unremarkable. Examination of the brain parenchyma demonstrates age-appropriate global atrophy, minimal periventricular degenerative micro-ischemia bilaterally, and 1.3 x 1.7 cm left basal ganglia remote infarct. No abnormal enhancing intra or extra-axial mass. Fourth ventricle is midline without hydrocephalus. Bony calvarium is intact. Visualized paranasal sinuses and mastoid air cells are clear. Impression: 1. Nonvisualization of the anterior/posterior communicating, both superior cerebellar, and right anterior inferior cerebellar arteries either occluded or too small for resolution of CT scan. 2. Remaining CTA [place] of [place] is negative. 3. Normal aging brain including atrophy and degenerative micro-ischemia. Also small remote appearing left basal ganglia infarct. CT DI 23.26
[2019-02-11] MEDS: Ditropan XL 5 MG PO SCH (22:37)
[2019-02-11] MEDS: Cymbalta 30 MG Capsule PO SCH (22:37)
[2019-02-12] MEDS: Sodium Chloride 0.9% 10 ML FLUSH Syringe IV SCH (05:03)
[2019-02-12 06:11] LABS: BASOPHIL % 0.1 % (0.0-0.4); Basophil (Absolute #) 0.01 (0-0.4); Eosinophil % 1.8 % (0.00-5.0); Eosinophil (Absolute #) 0.13 (0-0.5); Granulocyte Absolute (ANC) 3.64 (1.4-6.9); Granulocytes % 51.7 % (36.0-66.0); Hematocrit 36.4 % (35-47); Hemoglobin 11.3 gm/dl (12.0-16.0); Lymphocyte (Absolute #) 2.46 (1.0-4.6); Lymphocytes % 34.9 % (24.0-44.0); Mean Cell Volume 88.1 fl (78-100); Mean Platelet Volume 9.2 fl (6-9.5); Monocytes % 11.5 % (0.0-12.0); Platelet Count 287 K/mm3 (150-450); Red Blood Count 4.13 M/mm3 (4.1-5.4); Red Cell Distribution Width 14.3 % (11.5-14.0); White Blood Count 7.1 K/mm3 (4.0-10.5)
[2019-02-12 06:12] LABS: Mean Corpuscular Hemoglobin 27.3 pg (26-32)
[2019-02-12 06:50] LABS: ANION GAP 13.8 MEQ/L (5-15); BLOOD UREA NITROGEN 17 mg/dL (7-17); CHLORIDE 105 mmol/L (98-107); Calcium 9.6 mg/dL (8.4-10.2); Carbon Dioxide 26 mmol/L (22-30); Creatinine 1 0.89 mg/dL (0.52-1.04); Glucose 138 mg/dL (74-106); Potassium 4.3 mmol/L (3.5-5.1); SODIUM 141 mmol/L (137-145)
--- NOTE | 2019-02-12 09:23 | PCM.DS ---
Discharge Summary Date of Admission: 02/10/19 13:38 Admitting Physician: ARMANI ALVAREZ Consults: Consults on Case 02/10/19 13:55 Tele-Health Consult ROUTINE Primary Care Provider: ARMANI ALVAREZ Allergies Allergies Sulfa (Sulfonamide Antibiotics) Allergy (Verified 02/10/19 14:14) unsure of reaction Hospital Summary - Hospital Course Hospital Course: Pt is a 68 yo female pt of mine from [facility] with PMhx COPD, CHF, HTN, OA, hyperlipidemia, RA who was admitted from [facility] with cellulitis, UTI, and frequent falls. She has been worked up by cardiology for the falling but still wtih unknown etiology. She is on day #3 of rocephin IV. She has several wounds on her arms that have erytehma but this is improved since admission. PT has been treating the wounds and starting therapy for her balance/weakness. She is still c/o having lightheadedness. Teleneurology consult was done and they recommended CTA of the head to check posterior circulation - two of the vessels were not visible so I have asked the nursing staff to send this result to neurology and also tell them that pt's maternal aunt had ALS. If teleneurology has no further concerns, pt can be discharged to home today on po antibiotics for the cellulitis. - Vitals & Intake/Output Vital Signs: Vital Signs Temperature 98.3 F 02/12/19 08:00 Pulse Rate 62 02/12/19 08:00 Respiratory Rate 17 02/12/19 08:00 Blood Pressure 123/59 02/12/19 08:00 O2 Sat by Pulse Oximetry 94 L 02/12/19 08:00 Oxygen-Last Documented O2 Percentage 3 Liters = 32% Intake & Output: Intake & Output 02/09/19 02/10/19 02/11/19 02/12/19 11:59 11:59 11:59 11:59 Intake Total 2170 2318 Output Total 860 2500 Balance 1310 -182 Weight 113.1 kg - Lab Result Diagrams: 02/12/19 05:36 02/12/19 05:36 Lab Results-Last 24 Hrs: Lab Results-Last 24 Hours 02/12/19 02/12/19 Range/Units 05:36 05:36 WBC 7.1 (4.0-10.5) K/mm3 RBC 4.13 (4.1-5.4) M/mm3 Hgb 11.3 L (12.0-16.0) gm/dl Hct 36.4 (35-47) % MCV 88.1 (78-100) fl MCH 27.3 (26-32) pg MCHC 31.0 L (32-36) g/dl RDW 14.3 H (11.5-14.0) % Plt Count 287 (150-450) K/mm3 MPV 9.2 (6-9.5) fl Gran % 51.7 (36.0-66.0) % Eos # (Auto) 0.13 (0-0.5) Absolute Lymphs (auto) 2.46 (1.0-4.6) Absolute Monos (auto) 0.81 (0.0-1.3) Lymphocytes % 34.9 (24.0-44.0) % Monocytes % 11.5 (0.0-12.0) % Eosinophils % 1.8 (0.00-5.0) % Basophils % 0.1 (0.0-0.4) % Absolute Granulocytes 3.64 (1.4-6.9) Basophils # 0.01 (0-0.4) Sodium 141 (137-145) mmol/L Potassium 4.3 (3.5-5.1) mmol/L Chloride 105 (98-107) mmol/L Carbon Dioxide 26 (22-30) mmol/L Anion Gap 13.8 (5-15) MEQ/L BUN 17 (7-17) mg/dL Creatinine 0.89 (0.52-1.04) mg/dL Estimated GFR > 60.0 ML/MIN Glucose 138 H (74-106) mg/dL Calcium 9.6 (8.4-10.2) mg/dL Micro Results-Entire Visit: Microbiology 02/10/19 14:00 Urine Culture - Final Urine, Void <10K NORMAL SKIN CARLY PROBABLE SKIN CONTAMINANT - Radiology Exams Ordered Rad Exams-Entire Visit: Radiology Procedures Category Date Time Status CT ANGIOGRAPHY NECK [CT] Routine Exams 02/11/19 09:03 Completed CTA HEAD W AND/OR WO CONTRAST [CT] Routine Exams 02/11/19 09:03 Completed - Procedures and Test Procedures and Tests throughout Hospitalization: Therapy Orders & Screens 02/10/19 14:14 Oxygen Nasal Cannula 3 lpm Comment: 3 LPM NC at HS PRN Diagnosis: Cellulitis failed outpatient,UTI,Vomiting,Dizziness,Frequent Falls 02/10/19 15:06 OT Screen per Nursing Assess Comment: Protocol Order Physician Instructions: Greater than 3 points order OT Admission Screening Reason For Exam: Triggered on Admission Diagnosis: UTI cellulitis frequent falls Open Wound/Cellutlitis/Pressure Ulcers: Yes Acute Fx/ORIF/Change in wt bearing status: No Severe MUSCULOSKELETAL pain: No ADL Dysfunction: No Acute CVA w/Hemiparesis/Hemiplegia: No Decreased Functional Mobility/Strength: Yes Sprain/Strain: No Acute Post-op Mobility Dysfunction: No Total Points: 6 PT Screen per Nursing Assess Comment: Protocol Order Physician Instructions: Greater than 3 points order PT Admission Screenin Reason For Exam: Triggered on Admission Diagnosis: UTI cellulitis frequent falls Open Wound/Cellutlitis/Pressure Ulcers: Yes Acute Fx/ORIF/Change in wt bearing status: No Severe MUSCULOSKELETAL pain: No ADL Dysfunction: No Acute CVA w/Hemiparesis/Hemiplegia: No Decreased Functional Mobility/Strength: Yes Sprain/Strain: No Acute Post-op Mobility Dysfunction: No Total Points: 6 02/11/19 09:38 PT Eval & Treat (MD Order) ROUTINE Reason for Eval:: Dizziness, falls at home Diagnosis: UTI cellulitis frequent falls Discharge Exam General Appearance: no apparent distress, alert, obese Neurologic Exam: oriented x 3, cooperative Eye Exam: eyes nml inspection Respiratory Exam: normal breath sounds, lungs clear, No crackles/rales, No rhonchi, No wheezing Cardiovascular Exam: regular rate/rhythm, normal heart sounds, No murmur Extremity Exam: other (bilat UE with linear wounds; no eschars present today. Decreased erythema; some ttp persistent) Final Diagnosis/Problem List - Final Discharge Diagnosis/Problem (1) Cellulitis Current Visit: Yes Status: Acute Assessment & Plan: improved; if ok with teleneurology can d/c pt to home on keflex po today (500mg po QID x 7d). Code(s): L03.90 - CELLULITIS, UNSPECIFIED (2) Frequent falls Current Visit: Yes Status: Acute Assessment & Plan: Appreciate neurology consult, thank you. Code(s): R29.6 - REPEATED FALLS (3) UTI (urinary tract infection) Current Visit: Yes Status: Resolved Code(s): N39.0 - URINARY TRACT INFECTION , SITE NOT SPECIFIED (4) CHF (congestive heart failure) Current Visit: No Status: Chronic Code(s): I50.9 - HEART FAILURE, UNSPECIFIED (5) Hypertension Current Visit: No Status: Chronic Code(s): I10 - ESSENTIAL (PRIMARY) HYPERTENSION (6) Nausea Current Visit: Yes Status: Resolved Code(s): R11.0 - NAUSEA - Discharge Disposition: Home, Self-Care Condition: Stable Prescriptions: No Action Aspirin [Aspirin EC] 81 mg PO DAILY Multivitamin with Minerals [Hair, Skin and Nails] 500 mcg PO DAILY Tolterodine Tartrate [Detrol LA] 2 mg PO BID Omeprazole 20 mg PO DAILY Apixaban [Eliquis] 5 mg PO BID Hydrocodone Bit/Acetaminophen [[place] 5-325 Tablet] 1 each PO Q4-6HPRN PRN # 20 tablet MDD 4 PRN Reason: Pain Lisinopril 5 mg [Zestril 5 MG] 2.5 mg PO DAILY Simvastatin 20Mg [Zocor 20Mg] 20 mg PO DAILY Famotidine 20 mg [Pepcid 20 MG] 20 mg PO BID Duloxetine HCl [Cymbalta] 60 mg PO HS Duloxetine HCl 30 mg [Cymbalta 30 MG Capsule] 30 mg PO DAILY Gabapentin [Neurontin] 300 mg PO BID Follow up with: ARMANI ALVAREZ [Primary Care Provider] - 1 Week
[2019-02-12] MEDS: ROCEPHIN 1 Gm-D5w 50 ml Bag** 1 G/50 ML IVPB IV SCH (10:41)
[2019-02-12] MEDS: ELIQUIS 2.5 MG TABLET PO SCH (10:41)
[2019-02-12] MEDS: NEURONTIN 300 MG PO SCH (10:41)
[2019-02-12] MEDS: Pepcid 20 MG PO SCH (10:41)
[2019-02-12 13:33] VITALS: BP 116/62; PULSE 79
[2019-02-12 14:01] VITALS: O2SAT 94
--- NOTE | 2019-02-12 14:30 | PCM.DCORD ---
- Discharge Disposition: Home, Self-Care Condition: Stable Prescriptions: New Meclizine HCl 25 mg [Antivert 25 mg] 25 mg PO TID PRN #30 tablet PRN Reason: Dizziness Cephalexin Mh 500 mg [Keflex 500 mg] 500 mg PO QID #28 capsule Continue Aspirin [Aspirin EC] 81 mg PO DAILY Multivitamin with Minerals [Hair, Skin and Nails] 500 mcg PO DAILY Tolterodine Tartrate [Detrol LA] 2 mg PO BID Omeprazole 20 mg PO DAILY Apixaban [Eliquis] 5 mg PO BID Hydrocodone Bit/Acetaminophen [[place] 5-325 Tablet] 1 each PO Q4-6HPRN PRN # 20 tablet MDD 4 PRN Reason: Pain Lisinopril 5 mg [Zestril 5 MG] 2.5 mg PO DAILY Simvastatin 20Mg [Zocor 20Mg] 20 mg PO DAILY Famotidine 20 mg [Pepcid 20 MG] 20 mg PO BID Duloxetine HCl [Cymbalta] 60 mg PO HS Duloxetine HCl 30 mg [Cymbalta 30 MG Capsule] 30 mg PO DAILY Gabapentin [Neurontin] 300 mg PO BID Follow up with: ARMANI ALVAREZ [Primary Care Provider] - 1 Week
== END 2019-02-12 16:25 | disposition home or self-care (01) | DRG 603 ==
LOC: MED SURG 13:38
PROVIDERS: ADMIT Family Medicine; ATTEND Family Medicine
DX: L03.114 Cellulitis of left upper limb (principal); L03.113 Cellulitis of right upper limb; N39.0 Urinary tract infection, site not specified; R42 Dizziness and giddiness; J44.9 Chronic obstructive pulmonary disease, unspecified; I50.9 Heart failure, unspecified; I10 Essential (primary) hypertension; R11.2 Nausea with vomiting, unspecified; M06.9 Rheumatoid arthritis, unspecified; M19.90 Unspecified osteoarthritis, unspecified site; E78.5 Hyperlipidemia, unspecified; R29.6 Repeated falls; Z79.01 Long term (current) use of anticoagulants; Z79.899 Other long term (current) drug therapy
CPT/HCPCS: 36415; 70496; 70498; 80048; 80053; 81001; 83605; 85025; 87086; 94760; 97161; 97530; 97597; Q3014; J0696; A9270-GY